=== PATIENT | female | born 1950 | race Caucasian/White ===

== ENCOUNTER 2025-04-08 14:21 | Outpatient (AMB) | payer MEDICARE, SELFPAY ==
--- NOTE | 2025-04-08 14:25 | A.OFFPC_ITS ---
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: No Allergies varenicline [From Chantix] Allergy (Severe, Verified 04/08/25 14:31) mood swings Medication List - Last Reconciled 04/08/25 by Melina Plaza PA-C alendronate 70 mg PO QWEEK aspirin 81 mg PO DAILY atorvastatin 20 mg PO DAILY venlafaxine ER 150 mg PO DAILY Tobacco use date assessed: 04/08/25 Fall risk assessment: No Falls in past year Last assessed Fall Risk: 04/08/25 Dental Screening Dental Screen Date: 04/08/25 Did you have a dental visit in the last 12 months?: Yes Did you have a dental problem in the last 6 months where you did not have access to dental care?: No Was dental information given to patient?: Patient has dentist HPI est care HPI Details Pt is a 74 y/o female who presents today to establish care. She has a hx of anxiety, depression, osteoporosis, renal stones and hld. CV: bp today in the office is 134/76. Her cholesterol is controlled with atorvastatin 20 mg. Pysch: she is on effexor 150 mg and has been on this for many years. States that at different times she has tried to come off of this but has been unsuccessful. Uro: Has followed in the past with Dr. Estrada for kidney stones but has not been seen since 2022. 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 1. Little interest or pleasure in doing things: not at all 2. Feeling down, depressed, or hopeless: not at all 3. Trouble falling or staying asleep, or sleeping too much: not at all 4. Feeling tired or having little energy: not at all 5. Poor appetite or overeating: not at all 6. Feeling bad about yourself - or that you are a failure or have let yourself or your family down: not at all 7. Trouble concentrating on things, such as reading the newspaper or watching television: not at all 8. Moving or speaking so slowly that other people could have noticed. Or the opposite - being so fidgety or restless that you have been moving around a lot more than usual: not at all 9. Thoughts that you would be better off or of hurting yourself in some way: not at all Total score: 0 Depression Screening Interpretation: Negative Depression Screening Done: Yes 42886 - PHQ-9 Billing: Yes Source: Developed by Drs. Armando Mcmahon, Chcia Glover, Jean Paul Ramirez and colleagues, with an educational kavita from [employer]. Thrive Questionnaire Date Thrive assessed: 04/02/25 I am a: Patient What is your living situation today?: I have a steady place to live Within the past 12 months, did the food you bought not last and you didn't have the money to get more?: Never true Within the past 12 months, did you worry whether your food would run out before you got money to buy more?: Never true Do you have trouble paying for medicines?: No Do you have trouble getting transportation to medical appointments?: No Do you have trouble paying your heating and electricity bill?: No Do you have trouble taking care of your child, family member or friend?: No Do you have trouble with day-to-day activities such as bathing, preparing meals, shopping, managing finances, etc.?: No Are you currently unemployed and looking for a job?: No Are you interested in more education?: No Please select the resources that you would like help with: None Currently or been in a relationship where the following occur: No concerns reported THRIVE Score: 0 AUDIT C Alcohol Use Questionnaire (AUDIT-C) 1. How often do you have a drink containing alcohol?: Never 3. How often do you have six or more drinks on one occasion?: Never Total Score: 0 ELBERT-7 AMB Questionnaire ELBERT-7 Feeling nervous, anxious, or on edge: 0 = Not at all Not being able to stop or control worryin = Not at all Worrying too much about different things: 0 = Not at all Trouble relaxin = Not at all Being so restless that it is hard to sit still: 0 = Not at all Becoming easily annoyed or irritable: 0 = Not at all Feeling afraid as if something awful might happen: 0 = Not at all Total ELBERT-7 score (0-4 normal; 5-9 mild; 10-14 moderate; 15-21 severe): 0 Source: Developed by Drs. Armando Mcmahon, Chica Glover, Jean Paul Ramirez and colleagues, with an educational kavita from [employer]. ELBERT-7 Assessment Billing ELBERT-7 Assessment Tool: ELBERT-7 Assessment 52933 Physical exam (Primary Care) Vital Signs: Last Vital Signs Pulse 75 04/08/25 14:30 Resp 14 04/08/25 14:30 BP 134/76 04/08/25 14:30 Pulse Ox 95 04/08/25 14:30 Oxygen Delivery Method Room Air 04/08/25 14:30 BMI result Body Mass Index 19.9 Tobacco/Smoking Status: Tobacco use Status Tobacco use date assessed 04/08/25 04/08/25 14:27 Patient Tobacco Use Status Former Tobacco user (01/201804/08/25 15:14 ) e-Cigarette/Vaping Use Never Used 04/08/25 15:14 PHQ-9: PHQ-9 Score PHQ-9: Total score 0 04/08/25 15:15 Depression Screening Interpretation: Negative Thrive Assessment: Date of Thrive Assessment Date Thrive assessed 04/02/25 04/08/25 14:27 Currently or been in a relationship where the following occur: No concerns reported Const Orientation/consciousness: patient oriented x3 HENMT Ears: hearing grossly normal bilaterally Neck Thyroid: Thyroid normal Lymphatic: lymphadenopathy (cervical lymphadenopathy) Resp Auscultation: clear to auscultation bilaterally Cardio Rate: regular rate Rhythm: regular rhythm Heart sounds: S1 normal heart sound present and S2 normal heart sound present GI Inspection: Yes normal to inspection Palpation (GI): Soft to palpation and Other GI palpation findings present (nontender, no cva tenderness) Auscultation: normoactive bowel sounds Rectal Exam - Female: deferred Skin General skin exam: no rashes or lesions noted Neuro General: patient oriented x3, gait normal and no focal motor deficits Coding Level of Care Code New Pt Level 4 (14386) Complex EM visit Add On G2211 Diagnoses Hx of renal calculi Z87.442 Microscopic hematuria R31.29 HLD (hyperlipidemia) E78.5 Osteoporosis M81.0 Cervical lymphadenopathy R59.0 Anxiety and depression F41.9; F32.A Additional Codes PHQ-9 - 87181 - PHQ-9 Billing: Yes ([id number]) ELBERT-7 Assessment Billing - ELBERT-7 Assessment Tool: ELBERT-7 Assessment [id number] ([id number]) Assessment & Plan Assessment & Plan (1) Hx of renal calculi: Code(s): Z87.442 - Personal history of urinary calculi Category: Medical Plan: u/s and urine ordered today (2) Microscopic hematuria: Code(s): R31.29 - Other microscopic hematuria Category: Medical Plan: as above (3) HLD (hyperlipidemia): Code(s): E78.5 - Hyperlipidemia, unspecified Category: Medical Plan: Labs ordered today. Refilled atorvastatin (4) Osteoporosis: Code(s): M81.0 - Age-related osteoporosis without current pathological fracture Category: Medical Plan: Currently well-controlled on Fosamax. Due for bone density next year. (5) Cervical lymphadenopathy: Code(s): R59.0 - Localized enlarged lymph nodes Category: Medical Plan: Noted on exam today. States that dentist also noticed this. Neck ultrasound and labs ordered. We will follow up pending test results. (6) Anxiety and depression: Code(s): F41.9 - Anxiety disorder, unspecified; F32.A - Depression, unspecified Category: Medical Plan: refilled effexor Plan Referral to GI for colonoscopy screening Referral to derm for routine screening Orders: Orders Comprehensive [place]. Panel Fast 04/08/25 E78.5 - Hyperlipidemia, unspecified, M81.0 - Age-related osteoporosis without current pathological fracture, R31.29 - Other microscopic hematuria, Z87.442 - Personal history of urinary calculi Vitamin B12 and Folate 04/08/25 E78.5 - Hyperlipidemia, unspecified, M81.0 - Age-related osteoporosis without current pathological fracture, R31.29 - Other microscopic hematuria, Z87.442 - Personal history of urinary calculi Magnesium 04/08/25 E78.5 - Hyperlipidemia, unspecified, M81.0 - Age-related os teoporosis without current pathological fracture, R31.29 - Other microscopic hematuria, Z87.442 - Personal history of urinary calculi TSH reflex Free T4 04/08/25 E78. - Hyperlipidemia, unspecified, M81.0 - Age- related osteoporosis without current pathological fracture, R31.29 - Other microscopic hematuria, Z87.442 - Personal history of urinary calculi Vitamin D 25-OH Total 04/08/25 E78.5 - Hyperlipidemia, unspecified, M81.0 - Age-related osteoporosis without current pathological fracture, R31.29 - Other microscopic hematuria, Z87.442 - Personal history of urinary calculi Calcium, 24 Hr Ur 04/08/25 M81.0 - Age-related osteoporosis without current pathological fracture, R31.29 - Other microscopic hematuria, Z87.442 - Personal history of urinary calculi US renal BI 04/08/25 M81.0 - Age-related osteoporosis without current pathological fracture, R31.29 - Other microscopic hematuria, Z87.442 - Personal history of urinary calculi Complete Blood Count Auto Diff 04/08/25 E78.5 - Hyperlipidemia, unspecified, M81.0 - Age-related osteoporosis without current pathological fracture, R31.29 - Other microscopic hematuria, Z87.442 - Personal history of urinary calculi Lipid Panel 04/08/25 E78.5 - Hyperlipidemia, unspecified, M81.0 - Age-related osteoporosis without current pathological fracture, R31.29 - Other microscopic hematuria, Z87.442 - Personal history of urinary calculi UA CC w/rflx Micro + Cult 04/08/25 E78.5 - Hyperlipidemia, unspecified, M81.0 - Age-related osteoporosis without current pathological fracture, R31.29 - Other microscopic hematuria, Z13.220 - Encounter for screening for lipoid disorders, Z87.442 - Personal history of urinary calculi US soft tiss head and/or neck 04/08/25 R59.0 - Localized enlarged lymph nodes Referrals Gastroenterology Referral Z12.11 - Encounter for screening for malignant neoplasm of colon Dermatology Referral Z12.83 - Encounter for screening for malignant neoplasm of skin Medications: New alendronate 70 mg PO QWEEK 13 tabs 3RF 90 days atorvastatin 20 mg PO DAILY 90 tabs 3RF venlafaxine ER 150 mg PO DAILY 90 caps 3RF
[2025-04-08 14:30] VITALS: BP 134/76; PULSE 75; RESP 14; O2SAT 95; BMI 19.9
--- OUTSIDE RECORDS SUMMARY | 2025-04-08 14:41 | XMS_ITS | Continuity of Care Document ---
Author Organization 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 Name Role Phone Hesham Tavares Unavailable Unavailable [...] Procedures Procedure Date Ketorolac tromethamine inj 15mg Oct--2 023 Therapeutic Prophylactic/Dx Injection Amanda bq/Im Methylprednisolone injection Upto 125mg Therapeutic Prophylactic/Dx Injection Amanda bq/Im [facility] Advance Directives Directive Yes / No Effective Date File Name No Information Encounters Encounter Description Practice Location Reason(s) For Visit Diagnoses Date Provider Office/outpatien t visit,[facility], [address], [place], [id number], [place] tel:[phone] [facility] IC YV Rt arm pain, shoulder pain (chief complaint) Right arm painBody mass index (BMI) 19.9 or less, adult Juan Pablo Dahl. [address] [place] [address], [id number], [place]. tel:[phone] Family History Family Member Type Diagnosis Age At Onset No Information Payers Payer name Insurance type Covered libertarian ID Authorthonick roquereagan(s) Medicare [employer] [id number] [facility] PPO [id number] Social History Type Description Quantity Date Captured [...] Mental Status Date Cognitive Assessment Orientation - [place] to time, place, person, situation.
--- OUTSIDE RECORDS SUMMARY | 2025-04-08 14:41 | XMS_ITS | Clinical Summary ---
Author Organization [facility] [address] [place] [address] [place] [phone] Phone Care Team Providers Care Track Equipment Operator Name Role Phone Unavailable Primary Care Provider Unavailabl e Allergies No known active allergies Medications alendronate (FOSAMAX) 70 mg tablet Take 1 tablet (70 mg total) by mouth every 7 (seven) days. Active atorvastatin (LIPITOR) 20 mg tablet Take 1 tablet (20 mg total) by mouth 1 (one) time each day. Active calcium carbonate-pranay calciferol 500 mg-10 mcg (400 unit) per tablet Take 2 tablets by mouth. 01/03/2013 Active hydrOXYzine HCL (ATARAX) 25 mg tablet Take 1 tablet (25 mg total) by mouth. 09/18/2024 Active loperamide (IMODIUM) 2 mg capsule Take 1 capsule (2 mg total) by mouth. 06/27/2023 Active venlafaxine XR (EFFEXOR-XR) 150 mg 24 hr capsule Take 1 capsule (150 mg total) by mouth 1 (one) time each day. 03/18/2024 Active aspirin 81 mg capsule 1 CAPSULE DAILY 09/16/2007 Active s-adenosylmethi onine 400 mg tablet,delayed release (DR/EC) Take by mouth daily. Active Active Problems Problem Noted Date Diagnosed Date Mixed hyperlipidemia 02/07/2023 SOB (shortness of breath) on exertion 08/04/2022 Overview (10/20/2024): Last Assessment & Plan: The symptom is mild and could be just age-related. She doing fairly well with stress test and the functional capacity is probably higher than her peers. Does not suggest ischemia.. Probably partially related to smoking history. I will arrange echocardiogram to assess cardiac function, and structures. Her lipid level was a borderline elevated. Will suggest to repeat another lipid profile. If LDL is further elevated, she may benefit from statin therapy. Fracture of 5th metatarsal 10/20/2015 Dysthymia 04/01/2015 Tobacco dependence 04/01/2015 Alcohol dependence in remission ([facility] V24, [facility] V28) 01/11/2012 Overview (10/20/2024): Sober 17 yrs Migraine headache 02/25/2011 Raynaud disease 02/25/2011 Vasospastic angina ([facility] V24) 02/03/2009 Overview (10/20/2024): Normal cath with judy. Troponin and then inc. ST changes after cath- see transfer records, also with Raynauds and migraines Osteoporosis 09/16/2007 Overview (10/20/2024): LT. FOOT FX, h/o elbow fx and rib Encounters Date Type Department Care Team Description 02/05/2025 1:47 PM EDT - 02/05/2025 11:59 PM EDT Hospital Encounter Radiology Department - [address] [phone] Encounter for screening mammogram for breast cancer Discharge Disposition: Home or Self Care from Last 3 Months Immunizations Name Administration Dates Next Due Influenza Quadravalent, 0.5m l (Fluzone High-dose) 65yo and older 07/02/2023,08/08/2022,07/28/2021 Influenza Quadravalent, MDCK , 0.5ml, preservative free (Flucelvax) 6mo and older 11/27/2018 Influenza trivalent, 0.5mL ( Fluad) 65yo and older 07/22/2019 Influenza trivalent, 0.5mL ( Fluzone High-dose) 65yo and older 07/31/2024,08/19/2021 Pneumococcal conjugate 20 va lent (Prevnar 20, PCV 20) 2mo and older 07/14/2024 Pneumococcal polysaccharide 23 valent (Pneumovax 23) 2yo and older 01/08/2019 RSV, bivalent, protein subun it RSVpreF, 0.5mL, Preservative Free (Arexvy) 60yo and older 07/09/2023 Tdap Tetanus diptheria acell ular pertussis (Boostrix; Adacel) 7yo and older 06/06/2023,10/09/2013 Zoster Live 12/30/2013 Zoster recombinant (Shingrix ) 19yo and older 09/12/2022,01/06/2020 Surgical History Surgery Date Site/Laterality Comments COLONOSCOPY 01/09/2008 PROCEDURE: HISTORICAL COLONOSCOPY; COMMENT: negative; repeat in 10 years COLONOSCOPY 10/01/2018 PROCEDURE: HISTORICAL COLONOSCOPY; COMMENT: Minimal diverticulosis in the sigmoid colon; otherwise negative average risk screening examination. Medical History Medical History Date Comments Osteoporosis 09/16/2007 DX:Osteoporosis; COMMENT: taking actonel Depression 09/16/2007 DX:Depression; C OMMENT: SEES Special screening for malign ant neoplasms, colon 01/09/2008 DX:Special screening for mal ignant neoplasms, colon; COMMENT: Negative colonoscopy 01/09/2008, no colon cancer screening needed for 10 years. Historical Medical DX DX:Alcohol abuse, in remission; COMMENT: sober since 1999. Vasospastic angina (CMS/HCC V24) 02/03/2009 DX:Vasospastic angina (HCC); COMMENT: Normal cath with judy. Troponin and then inc. ST changes after cath- see transfer records, also with Raynauds and migraines Smoker 02/03/2009 DX:Smoker; COMME NT: 1- 11/2 pack per week Pure hypercholesterolemia 02/03/2009 DX:Pur e hypercholesterolemia Irritable bowel syndrome DX:Irri table bowel syndrome Diarrhea DX:Diarrhea Anxiety state DX:Anxiety state Family History Medical History Relation Name Comments No Known Problems Daughter Hypertension Father Arthritis Mother RA Hypertension Mother Thyroid disease Mother Asthma Sister 1 No Known Problems Sister 2 No Known Problems Son Breast cancer Neg Hx Relation Name Status Comments Daughter Alive Father Maternal Grandfather Maternal Grandmother Mother Paternal Grandfather Paternal Grandmother Sister 1 Alive Sister 2 Alive Son Alive Social History Tobacco Use Types Packs/Day Years Used Date Smoking Tobacco: Former Cigarettes 0.3 17.3 1 12/22/1999 - 02/01/2018 Smokeless Tobacco: Never Tobacco Cessation:Counseling Given: Not Answered Alcohol Use Standard Drinks/Week Comments Not Currently 0 (1 standard drink = 0.6 oz pur e alcohol) Comments No Sex and Gender Information Value Date Recorded Sex Assigned at Not on file Legal Sex Female 2:21 PM EST Gender Identity Not on file Sexual Orientation Not on file Obstetrics History Para Term AB IAB SAB Ectopic Multiple Livin g Live Births 2 2 2 2 Date Outcome GA Total Labor Labor/2nd/3rd Weight Sex Type Anes PTL Yoli A1 A5 Name Clin Term Term Last Filed Vital Signs Vital Sign Reading Time Taken Comments Blood Pressure 122/60 12/19/2024 12:54 PM EST Pulse 72 12/19/2024 12:54 PM EST Temperature 36.7 ??C (98.1 ??F) 12/19/2024 12:[address] Respiratory Rate - - Oxygen Saturation - - Inhaled Oxygen Concentration - - Weight 53.1 kg (117 lb) 12/19/2024 12:54 PM EST Height 165.1 cm (5' 5 ) 12/19/2024 12:54 PM EST Body Mass Index 19.47 12/19/2024 12:54 PM EST Plan of Treatment Health Maintenance Due Date Last Done Comments Hepatitis A Vaccines (1 of 2 - Risk 2-dose series) 1971 Falls Risk Assessment 10/28/2022 Social Influencers of Health Screening 10/28/2022 COVID-19 Vaccine (9 - Moderna risk season) 2025 07/25/2024, 09/17/2023, 03/15/2023, Additional history exists Depression Screening 05/20/2025 05/20/2024 Medicare Annual Wellness Visit 05/20/2025 05/20/2024 Osteoporosis Screening (Bone Density Screening) 12/03/2025 12/03/2023, 09/21/2021 Breast Cancer Screening 02/05/2027 02/06/20, 09/29/2024, 03/26/2024, Additional history exists Colorectal Cancer Screening: Colonoscopy 10/01/2028 10/01/2018 Cholesterol Screening (Lipid Panel) 05/16/2029 05/16/2024, 05/16/2024 DTaP,Tdap,and Td Vaccines (3 - Td or Tdap) 06/06/2033 06/06/2023, 10/09/2013 Hepatitis C Screening Completed 10/09/2013 Zoster Vaccines Completed 09/12/2022, 12/20, 12/30/2013 RSV Immunization Adult Patients Completed 07/09/2023 Pneumococcal Vaccine: 50+ Years Completed 07/14/2024, 01/08/2019, 12/20/2017 Influenza Vaccine Completed 07/31/2024, , 08/08/2022, Additional history exists HIB Vaccines Aged Out No longer eligi ble based on patient's age to complete this topic HPV Vaccines Aged Out No longer eligi ble based on patient's age to complete this topic Hepatitis B Vaccines Aged Out No long er eligible based on patient's age to complete this topic IPV Vaccines Aged Out No longer eligi ble based on patient's age to complete this topic MMR Vaccines Aged Out No longer eligi ble based on patient's age to complete this topic Meningococcal ACWY Vaccine Aged Out N o longer eligible based on patient's age to complete this topic Meningococcal B Vaccine Aged Out No l onger eligible based on patient's age to complete this topic RSV Immunization Patients Under 20 months Aged Out No longer eligible based on patient's age to complete this topic Varicella Vaccines Aged Out No longer eligible based on patient's age to complete this topic Procedures Procedure Name Priority Date/Time Associated Diagnosis Comments MG MAMMO DIGITAL SCREENING W AMAURY BILAT Routine 02/05/2025 1:53 PM EDT Encounter for screening mammogram for breast cancer DEPRESSION SCREENING Routine 05/20/2024 LIPID PANEL Routine 05/16/2024 DXA BONE DENSITY STUDY 1+ SITS AXIAL SKEL Routine 12/03/2023 1:07 PM EST Encounter for screening for osteoporosis COLONOSCOPY Routine 10/01/2018 HEPATITIS C SCREENING Routine 10/09/2013 from Last 3 Months or Most Recently Relevant to Health Maintenance Results * MG Mammo Digital Screening w Amaury bilat (02/05/2025 1:53 PM EDT) Anatomical Region Laterality Modality Breast Bilateral Mammography 02/06/2025 9:11 AM EDT Impressions 02/06/2025 9:13 AM EDT No mammographic evidence for malignancy. BI-RADS CATEGORY: 1 - NEGATIVE RECOMMENDATION: Screening bilateral mammogram is recommended in 1 year. Mammo Location: [facility], [address] [place] [address], [id number], . -------- FINAL REPORT -------- Dictated By: Opal Cox Dictated Date: 02/06/2025 09:11 ET Assigned Physician: Opal Cox Reviewed and Electronically Signed By: Opal Cox Signed Date: 02/06/2025 09:13 ET Workstation ID: [id number] Transcribed By: Self Edit Transcribed Date: 02/06/2025 09:11 ET Narrative 02/06/2025 9:13 AM EDT Bilateral screening mammogram. CLINICAL: 74 years old, Female, routine annual exam. COMPARISON: Prior studies, latest from 09/29/2024. ?? TECHNIQUE: Bilateral MLO and CC views were obtained digitally with 2 DC views and 3-D mammogram (digital breast tomosynthesis). Computer-aided detection was utilized in evaluation of this exam (CAD). FINDINGS: There is no evidence of suspicious mass or architectural distortion. ??No worrisome calcifications are evident. ??There has been no significant change from prior exam(s). ?? BREAST DENSITY: B - There are scattered areas of fibroglandular density. Procedure Note Opal Cox MD - 02/06/2025 Bilateral screening mammogram. CLINICAL: 74 years old, Female, routine annual exam. COMPARISON: Prior studies, latest from 09/29/2024. TECHNIQUE: Bilateral MLO and CC views were obtained digitally with 2 DCviews and 3-D mammogram (digital breast tomosynthesis). Computer-aideddetection was utilized in evaluation of this exam (CAD). FINDINGS: There is no evidence of suspicious mass or architectural distortion. Noworrisome calcifications are evident. There has been no significantchange from prior exam(s). BREAST DENSITY: B - There are scattered areas of fibroglandular density. IMPRESSION: No mammographic evidence for malignancy. BI-RADS CATEGORY: 1 - NEGATIVE RECOMMENDATION: Screening bilateral mammogram is recommended in 1 year. Mammo Location: [facility], [address] [place] [address], [address], . -------- FINAL REPORT -------- Dictated By: Opal Cox Dictated Date: 02/06/2025 09:11 ET Assigned Physician: Opal Cox Reviewed and Electronically Signed By: Opal Cox Signed Date: 02/06/2025 09:13 ET Workstation ID: [id number] Transcribed By: Self Edit Transcribed Date: 02/06/2025 09:11 ET Caridad Coates MD IMG BI PROCEDURES Final Result * Depression Screening (05/20/2024) Pathologist [facility] Depression Screening Abstracted Historical Provider HEALTH MAINTENANCE Final Result * Lipid panel (05/16/2024) LDL/HDL Ratio 2 0 - 4 Triglycerides 40 0 - 150 mg/dL Cholesterol 181 0 - 200 mg/dL HDL 106 >=40 mg/dL LDL Cholesterol 67 0 - 100 mg/dL Blood Venous blood specimen / Unknown Historical Provider LAB BLOOD ORDERABLES Laura l Result * DXA BONE DENSITY STUDY 1+ SITS AXIAL SKEL (12/03/2023 1:07 PM EST) Anatomical Region Laterality Modality Bone Densitometr y 06/14/2023 4:56 PM EDT Narrative 12/03/2023 2:48 PM EST BONE DENSITY ? Lumbar Spine T-score is -1.9 ?? (SD relative to 20-29 y/o adult) Z-score is +0.2 ??(SD relative to age matched peers) This is consistent with osteopenia by criteria defined by the WHO. Left Hip T-score is -2.4 Z-score is -0.5 This is consistent with osteopenia by criteria defined by the WHO. Comparison exam(s): no statistically significant change in the bone density of the hip and lumbar spine when compared to most recent bone density examination ?? Confidence level is +/-95%. Impression: Based on the World Health Organization criteria, Yvonne Joyner should be classified as having osteopenia. The [facility] of Internal Medicine recommends using National Osteoporosis Foundation (NOF) guidelines in treatment decisions related to osteoporosis. NOF guidelines suggest considering treatment for postmenopausal women and men aged 50 or older presenting with the following: History of hip or vertebral fracture. T-score less than or equal to -2.5 (DXA) at the femoral neck, total hip, or spine, after appropriate evaluation to exclude secondary causes. Low bone mass (T-score between -1.0 and -2.5 at the femoral neck or spine) AND a 10-year probability of a hip fracture greater than or equal to 3% OR a 10-year probability of a major osteoporosis-related fracture greater than or equal to 20% based on the [place]-adapted WHO algorithm Please note that all treatment decisions require clinical judgment and consideration of individual patient factors, including patient preferences, co-morbidities, previous drug use, risk factors not captured in the FRAX model (e.g., frailty, falls, vitamin D deficiency, increased bone turnover, interval significant decline in bone density) and possible under- or over-estimation of fracture risk by FRAX. Procedure Note Opal Cox MD - 07/07/2024 BONE DENSITY Lumbar Spine T-score is -1.9 (SD relative to 20-29 y/o adult) Z-score is +0.2 (SD relative to age matched peers) This is consistent with osteopenia by criteria defined by the WHO. Left Hip T-score is -2.4 Z-score is -0.5 This is consistent with osteopenia by criteria defined by the WHO. Comparison exam(s): no statistically significant change in the bonedensity of the hip and lumbar spine when compared to most recent bonedensity examination Confidence level is +/-95%. Impression: Based on the World Health Organization criteria, Yvonne Joyner should beclassified as having osteopenia. The [facility] of Internal Medicine recommendsusing National Osteoporosis Foundation (NOF) guidelines in treatmentdecisions related to osteoporosis. NOF guidelines suggest consideringtreatment for postmenopausal women and men aged 50 or older presentingwith the following: History of hip or vertebral fracture. T-score less than or equal to -2.5 (DXA) at the femoral neck, total hip,or spine, after appropriate evaluation to exclude secondary causes. Low bone mass (T-score between -1.0 and -2.5 at the femoral neck or spine)AND a 10-year probability of a hip fracture greater than or equal to 3% ORa 10-year probability of a major osteoporosis-related fracture greaterthan or equal to 20% based on the [place]-adapted WHO algorithm Please note that all treatment decisions require clinical judgment andconsideration of individual patient factors, including patientpreferences, co-morbidities, previous drug use, risk factors not capturedin the FRAX model (e.g., frailty, falls, vitamin D deficiency, increasedbone turnover, interval significant decline in bone density) and possibleunder- or over-estimation of fracture risk by FRAX. Valery James DO IMG DXA PROCEDURES Final Result * Colonoscopy (10/01/2018) [facility] Colonoscopy No Interpretation , Abstracted Anatomical Region Laterality Modality Other Historical Provider HEALTH MAINTENANCE Final Result * Hepatitis C Screening (10/09/2013) [facility] Hepatitis C Screening Abstracted Historical Provider HEALTH MAINTENANCE Final Result from Last 3 Months or Most Recently Relevant to Health [place] [phone] [facility] Member Subscriber Plan / Payer [facility] Name:Ar Yvonne Jakub Relation to Subscriber:Self Name:Yvonne Joyner Payer ID:[id number] Type:Not on file Address: [address] [place] [address]
== END 2025-04-08 15:31 | disposition home or self-care (01) ==
LOC: HO.HMCFM 14:22
PROVIDERS: PCP Physician Assistant; Visit Provider Physician Assistant
DX: Z87.442 Personal history of urinary calculi (principal); R31.29 Other microscopic hematuria; E78.5 Hyperlipidemia, unspecified; M81.0 Age-related osteoporosis without current pathological fracture; R59.0 Localized enlarged lymph nodes; F41.9 Anxiety disorder, unspecified; F32.A Depression, unspecified

== ENCOUNTER → 2025-04-08 14:21 | Outpatient (BNVA) | payer MEDICARE, SELFPAY | PROVIDERS: PCP Physician Assistant; Visit Provider Physician Assistant | DX: R31.29 Other microscopic hematuria (principal); E78.5 Hyperlipidemia, unspecified; M81.0 Age-related osteoporosis without current pathological fracture; R59.0 Localized enlarged lymph nodes; F41.9 Anxiety disorder, unspecified; F32.A Depression, unspecified; Z87.442 Personal history of urinary calculi | CPT/HCPCS: 96127; 99202 ==

== ENCOUNTER 2025-04-15 09:14 | Outpatient (REF) | payer MEDICARE, SELFPAY ==
--- OUTSIDE RECORDS SUMMARY | 2025-04-15 09:51 | XMS_ITS | Clinical Summary ---
Author Organization [facility] [address] [place] [address] [place] [phone] Phone Care Team Providers Care Lotteries Agent Name Role Phone Unavailable Primary Care Provider [...] Tobacco dependence 04/01/2015 Alcohol dependence in remission ([facility] V24, [facility] V28) 01/11/2012 Overview (10/20/2024): Sober 17 yrs Migraine headache 02/25/2011 Raynaud disease 02/25/2011 Vasospastic angina ([facility] V24) 02/03/2009 Overview (10/20/2024): Normal cath with judy. Troponin and then inc. ST changes after cath- see transfer records, also with Raynauds and migraines Osteoporosis 09/16/2007 Overview (10/20/2024): LT. FOOT FX, h/o elbow fx and rib Encounters Date Type Department Care Team Description 02/05/2025 1:47 PM EDT - 02/05/2025 11:59 PM EDT Hospital Encounter Radiology Department - [address] [address] Encounter for screening mammogram for breast cancer [...] is recommended in 1 year. Mammo Location: [facility], [address] [place] [address], [address], . -------- FINAL REPORT -------- Dictated By: Opal Cox Dictated Date: 02/06/2025 09:11 ET Assigned Physician: Opal Cox Reviewed and Electronically Signed By: Opal Cox Signed Date: 02/06/2025 09:13 ET Workstation ID: [id number] Transcribed By: Self Edit Transcribed Date: 02/06/2025 [...] is recommended in 1 year. Mammo Location: [facility], [address] [place] [address], [address], . -------- FINAL REPORT -------- Dictated By: Opal Cox Dictated Date: 02/06/2025 09:11 ET Assigned Physician: Opal Cox Reviewed and Electronically Signed By: Opal Cox Signed Date: 02/06/2025 09:13 ET Workstation ID: [id number] Transcribed By: Self Edit Transcribed Date: 02/06/2025 09:11 ET Caridad Coates MD IMG BI PROCEDURES Final Result * Depression Screening (05/20/2024) Pathologist [facility] Depression Screening Abstracted Historical Provider HEALTH MAINTENANCE [...] should be classified as having osteopenia. The [facility] of [facility] Medicine recommends using National [...] Joyner should beclassified as having osteopenia. The [facility] Department of Internal Medicine recommendsusing National Osteoporosis [...] DXA PROCEDURES Final Result * Colonoscopy (10/01/2018) [facility] Colonoscopy No Interpretation , Abstracted Anatomical Region Laterality Modality Other Historical Provider HEALTH MAINTENANCE Final Result * Hepatitis C Screening (10/09/2013) [facility] Hepatitis C Screening Abstracted Historical Provider HEALTH MAINTENANCE Final Result from Last 3 Months or Most Recently Relevant to [place] [phone] MEDICARE [facility]
[2025-04-15 11:18] LABS: Appearance Urine Hazy; Color Urine Yellow; Glucose Urine UA Negative (Negative); Leukocyte Esterase Urine Negative (Negative); Nitrite Urine Negative (Negative); PH 8.5 (5.0-9.0); UMIC TRIGGER UACC YES; Urine Blood Trace (Negative); Urine Ketones Negative (Negative); Urine Protein Negative (Neg-Trace)
[2025-04-15 11:20] LABS: Bacteria Urine None Seen (None Seen); Hyaline Casts Urine 0-2 /LPF (0-2); Squamous Epithelial Cell Urine 0-2 /HPF (0-2); WBC Urine 0-5 /HPF (0-5)
[2025-04-15 11:24] LABS: MANUAL DIFF FLAG NO
[2025-04-15 11:28] LABS: Basophils Percent Auto 1.1 % (0-2); Eosinophils Absolute Auto 0.2 X10*3/uL (0.0-0.4); Eosinophils Percent Auto 5.4 % (0-4); Hematocrit 38.9 % (37.0-47.0); Hemoglobin 12.5 g/dl (12.0-16.0); Imm Gran Abs Auto 0.01 X10*3/uL (0.00-0.03); Imm Gran Pct Auto 0.3 % (0.0-0.4); Lymphocytes Absolute Auto 1.4 X10*3/uL (1.2-4.9); Lymphocytes Percent Auto 40.6 % (20-40); Mean Corpuscular HGB Conc 32.1 g/dl (31.0-35.0); Mean Corpuscular Hemoglobin 28.4 pg (27.0-33.0); Mean Corpuscular Volume 88.4 fL (80.0-98.0); Mean Platelet Volume 9.8 fL (9.4-12.3); Monocytes Absolute Auto 0.2 X10*3/uL (0.1-1.2); Monocytes Percent Auto 6.3 % (2-11); Neutrophils Absolute Auto 1.6 x10*3/uL (2.0-8.3); Neutrophils Percent Auto 46.3 % (45-73); Platelet Count 287 X10*3/uL (160-400); Red Cell Distribution Width 13.2 % (11.0-16.0); White Blood Count 3.5 X10*3/uL (4.8-10.8)
[2025-04-15 12:14] LABS: Alanine Aminotransferase 22 U/L (0-31); Albumin Level 4.6 g/dL (3.5-5.0); Alkaline Phosphatase 44 U/L (39-117); Anion Gap 10 (12-20); Aspartate Amino Transferase 23 U/L (5-31); Bilirubin Total 0.3 mg/dL (0.0-1.0); Blood Urea Nitrogen 13 mg/dL (9-16); Calcium 8.9 mg/dL (8.4-10.2); Carbon Dioxide 30 mmol/L (22-29); Chloride 104 mmol/L (96-108); Cholesterol 196 mg/dL (<200); Estimated Glomerular Filt Rate > 60; Glucose Fasting 91 mg/dL (60-99); HDL Cholesterol 96 mg/dL (>40); LDL Cholesterol Calculated 93 mg/dL (<100); Magnesium 2.1 mg/dL (1.6-2.6); Potassium 3.8 mmol/L (3.3-5.1); Sodium 140 mmol/L (135-145); TSH reflex Free T4 2.19 uIU/mL (0.32-4.0); Total Protein 7.2 g/dL (6.5-8.0); Triglycerides 39 mg/dL (<150); Vitamin D 25-OH Total 74.7 ng/mL (>30)
[2025-04-15 12:33] LABS: Folate 5.9 ng/mL (> or = 4.0); Vitamin B12 436 pg/mL (200-900)
== END 2025-04-15 09:15 | disposition home or self-care (01) ==
LOC: HO.WFDLDS 09:14
PROVIDERS: Visit Provider Physician Assistant
DX: M81.0 Age-related osteoporosis without current pathological fracture (principal); E78.5 Hyperlipidemia, unspecified; R31.29 Other microscopic hematuria; Z87.442 Personal history of urinary calculi
CPT/HCPCS: 36415; 80053; 80061; 81001; 82306; 82607; 82746; 83735; 84443; 85025

== ENCOUNTER 2025-04-20 12:04 | Outpatient (REF) | payer MEDICARE, SELFPAY ==
--- OUTSIDE RECORDS SUMMARY | 2025-04-20 13:12 | XMS_ITS | Continuity of Care Document ---
Author Organization [facility] are Address [address] [place] [address] Phone Care Team Providers Care Machine Staker Name Role Phone Hesham Tavares Unavailable Unavailable [...] 125mg Therapeutic Prophylactic/Dx Injection Amanda bq/Im Office/outpatient visit,[facility] 2022 Advance Directives Directive Yes / No Effective Date File Name No Information Encounters Encounter Description Practice Location Reason(s) For Visit Diagnoses Date Provider Office/outpatien t visit,[facility], [address], [place], [id number], [place] tel:[phone] [facility] IC YV Rt arm pain, shoulder pain (chief complaint) Right arm painBody mass index (BMI) 19.9 or less, adult [place] Dahl. [address] [place] [address], [id number], [place]. tel:[phone] Family History Family Member Type Diagnosis Age At Onset No Information Payers Payer name Insurance type Covered republican ID Authorthonick roquereagan(s) Medicare [employer] [id number] [facility] PPO [id number] Social History Type Description Quantity Date Captured [...] Mental Status Date Cognitive Assessment Orientation - Hammon ed to time, place, person, situation.
[2025-04-26 20:09] LABS: Calcium, 24 Hr Urine 168 mg/24 h; Calcium/Creatinine Ratio 227 mg/g creat (30-275); Creatinine 24Hr Urine 0.74 g/24 h (0.50-2.15)
== END 2025-04-20 12:05 | disposition home or self-care (01) ==
LOC: HO.LNP 12:04
PROVIDERS: Visit Provider Physician Assistant
DX: M81.0 Age-related osteoporosis without current pathological fracture (principal); R31.29 Other microscopic hematuria; Z87.442 Personal history of urinary calculi
CPT/HCPCS: 82340

== ENCOUNTER 2025-05-15 14:31 | Outpatient (REF) | payer MEDICARE, SELFPAY ==
--- NOTE | ~2025-05-15 | US_ITS ---
EXAMINATION: US KIDNEY BILATERAL HISTORY: R31.29 - Other microscopic hematuria TECHNIQUE: Real-time grayscale ultrasound imaging of the kidneys was performed and images were reviewed. COMPARISON: There are no prior studies available for comparison. FINDINGS: Right kidney: The right kidney measures 9.4 x 4.2 x 4.0 cm. Renal parenchymal echotexture and thickness are normal. There is a 5 x 6 x 6 mm cyst in the interpolar region. There are scattered tiny nonobstructing calculi noted measuring up to 2 mm in size. There is no hydronephrosis. Left Kidney: The left kidney measures 8.9 x 4.9 x 3.6 cm. Renal parenchymal echotexture and thickness are normal. There are no masses. Multiple nonobstructing calculi are noted measuring up to 4 mm in size. There is no hydronephrosis. US/US renal BI IMPRESSION: Bilateral nephrolithiasis as described. There is no hydronephrosis. Electronically signed by: Armando Aguilar MD 05/18/2025 07:19 AM EDT
--- NOTE | ~2025-05-15 | US_ITS ---
EXAMINATION: US HEAD NECK SOFT TISSUE HISTORY: R59.0 - Localized enlarged lymph nodes COMPARISON: There are no prior studies available for comparison. FINDINGS: Sonographic examination of the neck was performed. There is a 1.4 x 0.4 x 0.9 cm ovoid hypoechoic structure in the right neck which likely represents a lymph node. On the left, there is a 1.6 x 1.4 x 1.3 cm cystic structure containing internal debris at level IA, of uncertain etiology. US/US soft tiss head and/or neck IMPRESSION: 1. Probable 1.4 x 0.4 x 0.9 cm right neck lymph node. 2. 1.6 x 1.4 x 1.3 cm cystic structure in the left neck containing internal debris, of unknown etiology. CT or MRI of the neck is suggested for further evaluation. Electronically signed by: Armando Aguilar MD 05/18/2025 07:24 AM EDT
--- OUTSIDE RECORDS SUMMARY | 2025-05-15 14:53 | XMS_ITS | Clinical Summary ---
Author Organization [facility] [address] [place] [address] [place] [phone] Phone Care Team Providers Care Transport Nurse Name Role Phone Unavailable Primary Care Provider [...] Tobacco dependence 04/01/2015 Alcohol dependence in remission ([facility] V24, [facility] V28) 01/11/2012 Overview (10/20/2024): Sober 17 yrs Migraine headache 02/25/2011 Raynaud disease 02/25/2011 Vasospastic angina ([facility] V24) 02/03/2009 Overview (10/20/2024): Normal cath with judy. Troponin and then inc. ST changes after cath- see transfer records, also with Raynauds and migraines Osteoporosis 09/16/2007 Overview (10/20/2024): LT. FOOT FX, h/o elbow fx and rib Immunizations Name Administration Dates Next Due Influenza [...] actonel Depression 09/16/2007 DX:Depression; C OMMENT: SEES MH Special screening for malign ant neoplasms, colon 01/09/2008 DX:Special screening for mal ignant neoplasms, colon; COMMENT: Negative colonoscopy 01/09/2008, no colon cancer screening needed for 10 years. Historical Medical DX DX:Alcohol abuse, in remission; COMMENT: sober since 1999. Vasospastic angina (CMS/HCC V24) 02/03/2009 DX:Vasospastic angina ([facility]); COMMENT: Normal cath with judy. Troponin and [...] 72 12/19/2024 12:54 PM EST Temperature 36.7 C (98.1 F) 12/19/2024 12:54 PM EST Respiratory Rate - - Oxygen Saturation - [...] is recommended in 1 year. Mammo Location: [facility], [address] [place] [address], [id number], . -------- FINAL REPORT -------- Dictated By: Opal Cox Dictated Date: 02/06/2025 09:11 ET Assigned Physician: Opal Cox Reviewed and Electronically Signed By: Opal Cox Signed Date: 02/06/2025 09:13 ET Workstation ID: [id number] Transcribed By: Self Edit Transcribed Date: 02/06/2025 [...] evidence of suspicious mass or architectural distortion. No worrisome calcifications are evident. There has been no significant change from prior exam(s). BREAST DENSITY: B - [...] is recommended in 1 year. Mammo Location: [facility], [address] [place] [address], [address], . -------- FINAL REPORT -------- Dictated By: Opal Cox Dictated Date: 02/06/2025 09:11 ET Assigned Physician: Opal Cox Reviewed and Electronically Signed By: Opal Cox Signed Date: 02/06/2025 09:13 ET Workstation ID: [id number] Transcribed By: Self Edit Transcribed Date: 02/06/2025 09:11 ET Caridad Coates MD IMG BI PROCEDURES Final Result * Depression Screening (05/20/2024) Depression Screening Abstracted Historical Provider HEALTH MAINTENANCE [...] Narrative 12/03/2023 2:48 PM EST BONE DENSITY Lumbar Spine T-score is -1.9 [...] compared to most recent bone density examination Confidence level is +/-95%. Impression: Based on the World Health Organization criteria, Yvonne Joyner should be classified as having osteopenia. The [facility] Department of Internal Medicine recommends using National [...] Joyner should beclassified as having osteopenia. The [facility] Department of Internal Medicine recommendsusing National Osteoporosis [...] fracture risk by FRAX. Valery James DO [facility] DXA PROCEDURES Final Result * Colonoscopy (10/01/2018) [facility] Colonoscopy No Interpretation , Abstracted Anatomical Region Laterality Modality Other Historical Provider HEALTH MAINTENANCE Final Result * Hepatitis C Screening (10/09/2013) [facility] Hepatitis C Screening Abstracted [facility] Provider HEALTH MAINTENANCE Final Result from Last 3 Months or Most Recently Relevant to Health Maintenance Insurance [facility]
== END 2025-05-15 14:32 | disposition home or self-care (01) ==
LOC: HO.US 14:31
PROVIDERS: PCP Physician Assistant; Visit Provider Physician Assistant
DX: R31.29 Other microscopic hematuria (principal); R59.0 Localized enlarged lymph nodes; M81.0 Age-related osteoporosis without current pathological fracture; Z87.442 Personal history of urinary calculi
CPT/HCPCS: 76536; 76775

== ENCOUNTER → 2025-05-15 14:36 | Outpatient (BNV) | payer MEDICARE, SELFPAY | PROVIDERS: PCP Physician Assistant; Visit Provider Radiology Diagnostic Radiology | DX: R59.0 Localized enlarged lymph nodes (principal); N20.0 Calculus of kidney | CPT/HCPCS: 76536; 76775 ==

== ENCOUNTER 2025-08-04 10:44 | Outpatient (REF) | payer MEDICARE, SELFPAY | END 2025-08-04 10:45 | disposition home or self-care (01) | LOC: HO.LAB 10:44 | PROVIDERS: PCP Physician Assistant; Visit Provider Nurse Practitioner Family | DX: R31.29 Other microscopic hematuria (principal); N28.1 Cyst of kidney, acquired; Z87.442 Personal history of urinary calculi; Z13.89 Encounter for screening for other disorder | CPT/HCPCS: 51798; 81003; 88112; 99202 ==

== ENCOUNTER 2025-08-04 10:44 | Outpatient (AMB) | payer MEDICARE, SELFPAY ==
--- NOTE | 2025-08-04 10:50 | MHC.OFFVIS ---
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 Plaza was accompanied by her significant other at today's office visit. She has a past medical history of IBS, hyperlipidemia, anxiety, depression, osteoporosis, and nephrolithiasis. She presents to the office today as a new patient for nephrolithiasis and renal cyst. In discussion with the patient today she reports previously following up with a urologist in the past through [facility] for her longstanding history of nephrolithiasis. She reports she was encouraged to drink water daily otherwise no other recommendations were made. She reports having recently established PCP care through [facility] and recommendations were made for urology referral for further assessment evaluation. Recent renal imaging results were reviewed with the patient and her today. Bilateral kidneys with normal parenchymal echotexture and thickness. Right kidney with 5 mm cyst and 2 mm nonobstructing stone. Left kidney with multiple 4 mm nonobstructing calculi. There is no hydronephrosis bilaterally. We did discussed at length potential causes of nephrolithiasis as well as renal cysts. We discussed obtaining Litholink for further assessment evaluation. She currently denies any bothersome urinary issues. She reports she is drinking at least 60 oz of water a day and adds lemon juice to her water daily. She reports knowing when she does not drink enough water as she gets a sensation to her left lower abdomen area. In office urinalysis results reviewed with the patient today. Microscopic hematuria noted. Patient does report a longstanding history of microscopic hematuria. She currently denies any bothersome urinary issues or concerns. All questions were answered. She discusses her upcoming appointment with Gastroenterology for her longstanding history of IBS and recent change in bowel habits. She also discusses her recent travel to [place] to see her son and grandchildren. She otherwise offers no other issues or concerns at this time. PFSH Surgical History (Updated 04/08/25 @ 15:12 by Judy Olivier CMA) H/O colonoscopy Family History (Updated 04/08/25 @ 15:14 by Judy Olivier CMA) Mother HTN (hypertension) Father HTN (hypertension) Thyroid disease Rheumatoid arthritis Sister Asthma Social History (Updated 04/08/25 @ 15:14 by Judy Olivier CMA) Housing: House Alcohol intake: former Comment: 35 years sober Patient Tobacco Use Status: Former Tobacco user Cigarettes Per Day: 5 Years Smoked: 20 e-Cigarette/Vaping Use: Never Used Second Hand Smoke Exposure: No service: No Current occupational status: retired Cognitive needs: No Hearing needs: No Vision needs: No Review of Systems Const All systems reviewed & are unremarkable except as noted in HPI and below Physical Exam Const General: cooperative, healthy appearing, comfortable, no acute distress, well developed, alert and awake Nutritional Appearance: thin Orientation/consciousness: patient oriented x3 Limitations: no limitations HEENT Head: Yes normal to inspection, Yes normocephalic and Yes atraumatic Ears: hearing grossly normal bilaterally Eyes General: appearance normal, both eyes and all related structures Neck Neck: Yes normal visual inspection and Yes trachea midline Chest Chest palpation & inspection: normal inspection of the chest Resp Effort & Inspection: normal respiratory effort and able to speak in complete sentences Cardio Rate: regular rate GI Inspection: Yes normal to inspection General: Yes no CVA tenderness Back/Spine/Pelvis Back: no CVA tenderness Skin General skin exam: no rashes or lesions noted Neuro General: patient oriented x3 Extrem General: Yes normal to inspection Psych Appearance: grossly normal and well kempt Mental Status: mental status grossly normal Speech and movement: Normal speech and movement present and Clear speech present Affect: normal affect Attitude: cooperative Thought process: Normal thought process present Thought content: Normal thought content present Insight: Fair insight present (Psych) Judgement: Fair judgement present (Psych) Office Procedures Post Void Residual Post Residual Void Post Void Residual (PVR): 0 [id number] Void Residual by ultrasound Results AMB Urinalysis, Automated UA Leukoctes 0 Louisa/uL Last Edit by LUIS M Hernandez on 08/04/25 11:06 UA Nitrite Negative Last Edit by LUIS M Hernandez on 08/04/25 11:06 UA Urobilinogen 0.2 mg/dL Last Edit by Rylan Zamora [facility] on 08/04/25 11:06 UA Protein 0 mg/dL Last Edit by Rylan Zamora [facility] on 08/04/25 11:06 UA pH 6.5 Last Edit by Rylan Zamora [facility] on 08/04/25 11:06 UA Blood 25 Kirk/uL Last Edit by Rylan Zamora [facility] on 08/04/25 11:06 UA Specific Paradox 1.010 Last Edit by Rylan Zamora [facility] on 08/04/25 11:06 UA Ketone Negative Last Edit by Rylan Zamora [facility] on 08/04/25 11:06 UA Bilirubin 0 mg/dL Last Edit by Rylan Zamora [facility] on 08/04/25 11:06 UA Glucose 0 mg/dL Last Edit by Rylan Zamora [facility] on 08/04/25 11:06 Results Reviewed Results Reviewed: Laboratory Last Values Urine pH (Auto) 6.5 08/04/25 11:06 Specific Paradox (Auto) 1.010 08/04/25 11:06 Urine Protein (Auto) 0 mg/dL 08/04/25 11:06 Glucose (UA)(Auto) 0 mg/dL 08/04/25 11:06 Urine Ketones (Auto) Negative 08/04/25 11:06 Urine Blood (Auto) 25 Kirk/uL 08/04/25 11:06 Urine Nitrite (Auto) Negative 08/04/25 11:06 Urine Bilirubin (Auto) 0 mg/dL 08/04/25 11:06 Urine Urobilinogen (Auto) 0.2 mg/dL 08/04/25 11:06 Leukocyte Esterase (Auto) 0 Louisa/uL 08/04/25 11:06 Date of Service: 05/15/25 Procedure(s): US renal BI FINDINGS: Right kidney: The right kidney measures 9.4 x 4.2 x 4.0 cm. Renal parenchymal echotexture and thickness are normal. There is a 5 x 6 x 6 mm cyst in the interpolar region. There are scattered tiny nonobstructing calculi noted measuring up to 2 mm in size. There is no hydronephrosis. Left Kidney: The left kidney measures 8.9 x 4.9 x 3.6 cm. Renal parenchymal echotexture and thickness are normal. There are no masses. Multiple nonobstructing calculi are noted measuring up to 4 mm in size. There is no hydronephrosis. IMPRESSION: Bilateral nephrolithiasis as described. There is no hydronephrosis. Assessment & Plan Assessment & Plan (1) Microscopic hematuria: Code(s): R31.29 - Other microscopic hematuria Category: Medical (2) Renal cyst, right: Code(s): N28.1 - Cyst of kidney, acquired Category: Medical (3) Hx of renal calculi: Code(s): Z87.442 - Personal history of urinary calculi Category: Medical Plan In office urinalysis results reviewed with the patient today; as noted above. PVR 0 mL We discussed nephrolithiasis, microscopic hematuria, and renal cysts; we discussed further treatment options and risks and benefits of these treatment options. All questions were answered. Will obtain Litholink for further assessment evaluation. Continue adding lemon juice to water daily. We discussed the importance of adequate hydration relation to nephrolithiasis as well as overall health and well-being. She currently denies any bothersome urinary issues. She reports be happy with current voiding parameters. Follow-up in 3 months with Litholink to be completed prior; or sooner with any issues, concerns, and or questions. Orders: Orders AMB Urinalysis Automated Today Z13.9 - Encounter for screening, unspecified Urine Cytology Today R31.29 - Other microscopic hematuria URORISK Today Z87.442 - Personal history of urinary calculi Patient Instructions: The patient had an opportunity to ask questions regarding the treatment plan. All questions were answered. Physical exam, labs, and imaging were discussed and reviewed in detail. As well as risks, benefits, and discussion of treatment choices. No major barriers to understanding were identified. The patient expressed understanding and agreement with the above treatment plan. The patient was made aware they should contact our office by phone for worsening of their current condition, the appearance of new symptoms, or with any questions or concerns. Compliance is encouraged with any medications and follow up testing that is ordered. It is a privilege to be allowed the opportunity to participate in? your urological care.? Again, if you have any questions or concerns If you have any questions or concerns please do not hesitate to contact me. The office is [phone]. This note is constructed using voice recognition software. While every effort has been made to ensure accuracy vacuum tester cans errors may have been included. Yours sincerely, NELLY Taylor-PHUONG Coding Level of Care Code New Pt Level 3 (91253) Diagnoses Microscopic hematuria R31.29 Renal cyst, right N28.1 Hx of renal calculi Z87.442 CPT Codes Post Residual Void - PVR CPT Code: [id number] Void Residual by ultrasound ([id number])
--- OUTSIDE RECORDS SUMMARY | 2025-08-04 14:19 | XMS_ITS | Clinical Summary ---
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 Phone Unavailable Primary Care Provider [...] Tobacco dependence 04/01/2015 Alcohol dependence in remission ([facility] V24, [facility] V28) 01/11/2012 Overview (10/20/2024): Sober 17 yrs Migraine headache 02/25/2011 Raynaud disease 02/25/2011 Vasospastic angina ([facility] V24) 02/03/2009 Overview (10/20/2024): Normal [...] Vasospastic angina (CMS/HCC V24) 02/03/2009 DX:Vasospastic angina ([facility]); COMMENT: Normal cath with judy. Troponin and [...] 10/28/2022 Social Influencers of Health Screening 10/28/2022 Depression Screening 11/19/2024 05/20/2024 Medicare Annual Wellness Visit 05/20/2025 05/20/2024 COVID-19 Vaccine ( season) 2025 07/25/2024, 09/17/2023, 03/15/2023, Additional history exists Influenza Vaccine (#1) 2025 , 07/02/2023, 08/08/2022, Additional history exists Osteoporosis Screening (Bone Density Screening) 12/03/2025 12/03/2023, [...] Vaccine: 50+ Years Completed 07/14/2024, 01/08/2019, 12/20/2017 HIB Vaccines Aged Out No longer eligi [...] is recommended in 1 year. Mammo Location: [facility], [address] [place] [address], [address], . -------- FINAL REPORT -------- Dictated By: Opal Cox Dictated Date: 02/06/2025 09:11 ET Assigned Physician: Opal Cox Reviewed and Electronically Signed By: Opal Cox Signed Date: 02/06/2025 09:13 ET Workstation ID: [id number] Transcribed By: Self Edit Transcribed Date: 02/06/2025 [...] is recommended in 1 year. Mammo Location: [facility], [address] [place], [place], [address], . -------- FINAL REPORT -------- Dictated By: Opal Cox Dictated Date: 02/06/2025 09:11 ET Assigned Physician: Opal Cox Reviewed and Electronically Signed By: Opal Cox Signed Date: 02/06/2025 09:13 ET Workstation ID: [id number] Transcribed By: Self Edit Transcribed Date: 02/06/2025 [...] should be classified as having osteopenia. The [facility] Department of Internal Medicine recommends using National [...] Joyner should beclassified as having osteopenia. The [facility] Department of Internal Medicine recommendsusing National Osteoporosis [...] fracture risk by FRAX. Valery James DO [facility] DXA PROCEDURES Final Result * Colonoscopy (10/01/2018) [facility] Colonoscopy No Interpretation , Abstracted Anatomical Region Laterality Modality Other Historical Provider HEALTH MAINTENANCE Final Result * Hepatitis C Screening (10/09/2013) [facility] Hepatitis C Screening Abstracted [facility] Provider HEALTH MAINTENANCE Final Result from Last 3 Months or Most Recently Relevant to Health Maintenance Insurance MEDICARE [facility]
--- OUTSIDE RECORDS SUMMARY | 2025-08-04 14:19 | XMS_ITS ---
Author Name [facility] Organization Unknown Care Team Organization Name Specialty Phone Email Start Date End Da [facility] 07/08/2025 [facility] Sharifa Redman Primary Care 04/27/2023 07/07/20 [facility] Juan Miguel Ny Primary Care 09/26/2022 07/07/2024
== END 2025-08-04 11:50 | disposition home or self-care (01) ==
LOC: HO.HUSH 10:44
PROVIDERS: PCP Physician Assistant; Visit Provider Nurse Practitioner Family
DX: R31.29 Other microscopic hematuria (principal); N28.1 Cyst of kidney, acquired; Z87.442 Personal history of urinary calculi; Z13.9 Encounter for screening, unspecified
CPT/HCPCS: 99203

== ENCOUNTER 2025-08-17 09:01 | Outpatient (REF) | payer MEDICARE, SELFPAY ==
--- OUTSIDE RECORDS SUMMARY | 2025-08-17 09:36 | XMS_ITS | Clinical Summary ---
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 Troponin and then inc. ST changes after cath- see transfer records, also with Raynauds and migraines Osteoporosis 09/16/2007 Overview (10/20/2024): LT. FOOT FX, h/o elbow fx and rib Immunizations Immunization Administration Dates Next Due Influenza Quadravalent, 0.5m [...] Vasospastic angina (CMS/HCC V24) 02/03/2009 DX:Vasospastic angina ([facility]); COMMENT: Normal cath with judy. [...] is recommended in 1 year. Mammo Location: [facility], [address] [place] [address], [address], . -------- FINAL REPORT -------- Dictated By: Opal Cox Dictated Date: 02/06/2025 09:11 ET Assigned Physician: Opal Cox Reviewed and Electronically Signed By: Opal Cox Signed Date: 02/06/2025 09:13 ET Workstation ID: [id number] Transcribed By: Self Edit Transcribed Date: 02/06/2025 [...] is recommended in 1 year. Mammo Location: [facility], [address] [place], [place], [address], . -------- FINAL REPORT -------- Dictated By: Opal Cox Dictated Date: 02/06/2025 09:11 ET Assigned Physician: Opal Cox Reviewed and Electronically Signed By: Opal Cox Signed Date: 02/06/2025 09:13 ET Workstation ID: [id number] Transcribed By: Self Edit Transcribed Date: 02/06/2025 [...] should be classified as having osteopenia. The [facility] Department of Internal Medicine recommends using National [...] Joyner should beclassified as having osteopenia. The [facility] Department of Internal Medicine recommendsusing National Osteoporosis [...] DXA PROCEDURES Final Result * Colonoscopy (10/01/2018) [facility] Colonoscopy No Interpretation , Abstracted Anatomical Region Laterality Modality Other Historical Provider HEALTH MAINTENANCE Final Result * Hepatitis C Screening (10/09/2013) [facility] Hepatitis C Screening Abstracted [facility] Provider HEALTH MAINTENANCE Final Result from Last 3 Months or Most Recently Relevant to Health Maintenance Insurance MEDICARE [facility]
[2025-08-17 11:25] LABS: MANUAL DIFF FLAG NO
[2025-08-17 11:26] LABS: Appearance Urine Clear; Glucose Urine UA Negative (Negative); PH 8.0 (5.0-9.0); Specific Gravity - Urine 1.015 (1.005-1.025); UMIC TRIGGER UACC YES
[2025-08-17 11:31] LABS: Hematocrit 37.1 % (37.0-47.0); Hemoglobin 12.4 g/dl (12.0-16.0); Imm Gran Abs Auto 0.01 X10*3/uL (0.00-0.03); Imm Gran Pct Auto 0.2 % (0.0-0.4); Lymphocytes Absolute Auto 1.5 X10*3/uL (1.2-4.9); Mean Corpuscular HGB Conc 33.4 g/dl (31.0-35.0); Mean Corpuscular Hemoglobin 29.4 pg (27.0-33.0); Mean Corpuscular Volume 87.9 fL (80.0-98.0); NRBC Abs Auto 0.000 X10*3/uL (0.0-0.012); NRBC Pct Auto 0.0 /100WBC (0.0-0.2); Platelet Count 262 X10*3/uL (160-400); Red Blood Count 4.22 X10*6/uL (4.20-5.50); White Blood Count 4.2 X10*3/uL (4.8-10.8)
[2025-08-17 12:02] LABS: UACC Culture Trigger YES
[2025-08-17 14:43] LABS: Anion Gap 9 (12-20); Blood Urea Nitrogen 12 mg/dL (9-16); Calcium 9.0 mg/dL (8.4-10.2); Carbon Dioxide 30 mmol/L (22-29); Chloride 106 mmol/L (96-108); Estimated Glomerular Filt Rate > 60; Potassium 4.0 mmol/L (3.3-5.1); Sodium 141 mmol/L (135-145)
== END 2025-08-17 09:02 | disposition home or self-care (01) ==
LOC: HO.WFDLDS 09:01
PROVIDERS: Visit Provider Physician Assistant
DX: D72.819 Decreased white blood cell count, unspecified (principal); F41.9 Anxiety disorder, unspecified; F32.A Depression, unspecified; E78.5 Hyperlipidemia, unspecified; Z87.442 Personal history of urinary calculi
CPT/HCPCS: 36415; 80048; 81001; 85025; 87086

== ENCOUNTER 2025-08-20 08:54 | Outpatient (AMB) | payer MEDICARE, SELFPAY ==
--- OUTSIDE RECORDS SUMMARY | 2023-09-05 05:00 | XMS_ITS | Continuity of Care Document ---
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 Name Role Phone Hesham Tavares Unavailable Unavailable Medications Medication Instructions Dosage Effective Dates (start - stop) Status Comments alendronate 70 mg tablet take 1 tablet by oral route every week in the morning, at least 30 min before first food, beverage, or medication of day 70 MG - Active venlafaxine ER 150 mg tablet,extended release 24 hr take 1 tablet by oral route every day in the morning at the same time each day with food 150 MG - Active loperamide 2 mg capsule take 1 capsule by oral route after 1st loose stool, followed by 1 capsule after each subsequent loose stool not to exceed 16 mg/day 2 MG - Active atorvastatin 20 mg tablet take 1 tablet by oral route every day 20 MG - Active calcium carb-vit D3-minerals 600 mg calcium-400 unit tablet - Active Vazalore 81 mg capsule take 1 capsule by oral route every day 81 MG - Active ibuprofen 200 mg capsule take 2 capsule by oral route every 6 hours as needed 400 MG - Active DAVIDA-e 200 mg tablet - Active Procedures Procedure Date Ketorolac tromethamine inj 15mg - 023 Therapeutic Prophylactic/Dx Injection Amanda bq/Im Methylprednisolone injection Upto 125mg Therapeutic Prophylactic/Dx Injection Amanda bq/Im Office/outpatient visit,[facility] 2022 Advance Directives Directive Yes / No Effective Date File Name No Information Encounters Encounter Description Practice Location Reason(s) For Visit Diagnoses Date Provider Office/outpatien t visit,[facility], [address], [place], [id number], [place] tel:[phone] [facility] IC YV Rt arm pain, shoulder pain (chief complaint) Right arm painBody mass index (BMI) 19.9 or less, adult Juan Pablo Dahl. [address] [place] [address], [id number], [place]. tel:[phone] Family History Family Member Type Diagnosis Age At Onset No Information Payers Payer name Insurance type Covered alliance party ID Authorthonick roquereagan(s) Medicare [employer] [id number] [facility] PPO [id number] Social History Type Description Quantity Date Captured Comments Alcohol Use Details Unknown Caffeine Use Details Unknown Tobacco Use Status No Information Smoking Status No Information Sex Female Vital Signs Date / Time: Height Weight BMI Pulse Rate Blood Pressure Temperature Respiratory Rate Body Surface Area Head Circumference Head Circ. Percentile Wt./Valentin. Percentile BMI percentile Pulse Ox Inhaled Ox 9:25 AM 65.00 in 54.431 kg (120.00 lbs) 19.9 7 kg/m eter (2) 82 /min 175/88 mm[Hg] 98.00 F 16 /min 99 % Chief Complaint And Reason For Visit From encounter dated '09/05/2023 09:00'. Rt arm pain, shoulder pain (chief complaint). Description: The symptoms are reported as being . Thesymptoms occur . The patient states the symptoms are acute. Patient is [place] here from [place] of [place] to help with her grandchildren's care. Patient denies any injury. Patient states she hasbeen lifting her 2-year-old grandson child a lot. Patient does have a chronic shoulder pain. However this time it is quite bad and radiating to her right arm. She is returning to her home in 2 days. History Of Present Illness Encounter Date Complaint History Of Prese nt Illness Rt arm pain, shoulder pain The s ymptoms are reported as being . The symptoms occur . The patient states the symptoms are acute. Patient is visiting here from out of state to help with her grandchildren's care. Patient denies any injury. Patient states she has been lifting her 2-year-old grandson child a lot. Patient does have a chronic shoulder pain. However this time it is quite bad and radiating to her right arm. She is returning to her home in 2 days. Instructions Date Instruction Additional Infor mation Please take medicati ons as prescribed. Heat, massage and gentle stretching mild help ease the pain as well. Be sure to seen you PCP in 1 week for further evaluation. Related to Right arm pain Assessments Type Assessment Date assessment Right arm pain assessment Body mass index (BMI) 19.9 or le ss, adult Mental Status Date Cognitive Assessment Orientation - [place] ed to time, place, person, situation.
--- NOTE | 2025-08-20 08:57 | MHC.OFFVIS ---
Vital Signs 08/20/25 09:04 Height 5 ft 3 in Weight 112 lb BMI 19.8 BP 134/78 Blood Pressure Location Lt brachial Position Sitting Pulse 76 Pulse Oximetry (%) 96 Oxygen Delivery Method Room Air Intake Visit Reasons: Colonoscopy Screening Intake Note: Patient new consult for 3rd pre Colonoscopy screening, 1st two was at [facility] dx with diverticulosis. Patient cc: not urge to do BM/constipation, she was dx with IBS, couples of months she was with bloody stool, denies any other GI issues. 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 Referred by PCP for pre colonoscopy screening Patient is accompanied by spouse. Patient presents reporting approximately 4 months of intermittent blood noted in stools, described as a small, maroon quantity, often with associated mucus but without accompanying pain. Has a longstanding history of constipation alternating with diarrhea over the past 1?2 years, previously diagnosed as IBS by GI specialist( [facility]), with prior predominant diarrhea. More recently, has experienced constipation with bowel movements every 3?4 days, character described as small, hard, malt ball appearing. Denies any urge to defecate between movements, bloating, acid indigestion, abdominal pain, or discomfort. Appetite remains robust and energy level described as optimal. No recent medication changes. Reports good fluid intake (~60?65 oz water/day), high fiber and vegetable intake, and regular exercise. Notable past colonoscopy in 2018 with minimal diverticulosis in the sigmoid; otherwise negative. No prior polyps. No family history of GI malignancy. Recent labs reportedly unremarkable, including no anemia Of note, comorbid diabetes and osteoporosis. History of kidney stones and thyroid/parathyroid cyst. Patient denies: fever/chills, n/v, appetite changes, pyrosis, regurgitation,dysphasia, unintentional wt loss, ab pain. Social hx: -denies ETOH use -denies recreational drug use -former smoker, cessation 2017 - family hx as below -denies personal hx of CA -denies significant cardiopulmonary history -tolerated anesthesia in the past without difficulty [facility] Medical History (Updated 08/21/25 @ 17:09 by Ana Maria Rai CNP) Constipation Colon cancer screening Rectal bleeding Surgical History H/O colonoscopy Family History Mother HTN (hypertension) Father HTN (hypertension) Thyroid disease Rheumatoid arthritis Sister Asthma Social History Housing: House Alcohol intake: former Comment: 35 years sober Patient Tobacco Use Status: Former Tobacco user Cigarettes Per Day: 5 Years Smoked: 20 e-Cigarette/Vaping Use: Never Used Second Hand Smoke Exposure: No service: No Current occupational status: retired Cognitive needs: No Hearing needs: No Vision needs: No Review of Systems Const Reports as per HPI ENT Reports as per HPI Card Reports as per HPI Resp Reports as per HPI GI Reports as per HPI Reports as per HPI Physical Exam Vital Signs: Last Vital Signs Pulse 76 08/20/25 09:04 BP 134/78 08/20/25 09:04 Pulse Ox 96 08/20/25 09:04 Oxygen Delivery Method Room Air 08/20/25 09:04 BMI result Body Mass Index 19.8 Const General: healthy appearing, no acute distress and well developed Nutritional Appearance: average body habitus Orientation/consciousness: patient oriented x3 HEENT Head: Yes normal to inspection, Yes normocephalic and Yes atraumatic Face and sinus: Yes normal facial exam Eyes General: appearance normal, both eyes and all related structures Neck Neck: Yes normal visual inspection Resp Effort & Inspection: normal respiratory effort, able to speak in complete sentences, no tracheal deviation and symmetric chest movement Cardio Jugular venous distension: no JVD GI Inspection: Yes normal to inspection and No distended Palpation (GI): Soft to palpation, not firm, nontender and No hepatosplenomegaly present Auscultation: normal bowel sounds Rectal Exam - Female: visual inspection normal, normal sphincter tone, No External hemorrhoid(s) present, No Internal hemorrhoid(s) present, No Rectal prolapse, No fecal impaction, No Lesions present (GI), No Anal fissure(s) present, hemorrhoids (tags only), No Fistula present (GI), No Laceration(s) present (GI), No Excoriation present (GI), No mass and No tenderness Neuro General: patient oriented x3 Gait exam (Neuro): Normal gait present Psych Appearance: grossly normal Mental Status: mental status grossly normal Speech and movement: Normal speech and movement present Affect: normal affect Attitude: cooperative Thought process: Normal thought process present Thought content: Normal thought content present Insight: Good insight present (Psych) Judgement: Good judgement present (Psych) Assessment & Plan Assessment & Plan (1) Colon cancer screening: Code(s): Z12.11 - Encounter for screening for malignant neoplasm of colon Category: Medical Plan: Due for surveillance. Intermittent rectal bleeding. Medications: -prescriptions for laxative tablets and PEG sent to pharmacy; instructions on clear liquid diet given. - understands to hold aspirin 7 days prior to procedure. Patient educated on scheduling process, procedure preparation, including avoiding certain foods and ensuring clear liquid intake Advised on necessity for ride post-procedure due to sedation. (2) Rectal bleeding: Code(s): K62.5 - Hemorrhage of anus and rectum Category: Medical Plan: Intermittent, minor, maroon rectal bleeding, episodic, without anemia on labs; history of diverticulosis; no overt hemorrhoids or fissures on exam. Additional Testing: Colonoscopy ordered to evaluate for mucosal source (polyps, neoplasia, persistent diverticular disease, etc.). Medication Management: Continue current regimen; hold aspirin 7 days pre-procedure per protocol. Lifestyle Recommendations: Continue high fiber/fluid intake. Monitor for red flag symptoms: persistent bleeding, increased frequency/volume, weight loss, new pain, fevers. Follow-Up: Colonoscopy and post-procedure follow-up. Sooner assessment if new concerning symptoms develop. (3) Constipation: Code(s): K59.00 - Constipation, unspecified Category: Medical Qualifiers: Constipation type: unspecified constipation type Qualified Code(s): K59.00 - Constipation, unspecified Plan: Alternating constipation and diarrhea; chronicity; prior GI diagnosis; absence of alarm features. C/W IBS mix Additional Testing: None at present beyond planned colonoscopy. Medication Management: Patient prefers to avoid pharmacologic agents; continue current self-care (diet/hydration, probiotic, routine exercise). Lifestyle Recommendations: Optimize dietary fiber/soluble-insoluble mix, further titrate hydration if constipation persists. Review bowel regimen if symptoms worsen. Follow-Up: Per GI as above; sooner if symptomatic changes or patient preference. Plan Follow-up after endoscopy or sooner as needed Time: I spent a total of 45 minutes on the date of encounter which includes: Preparing to see the patient (reviewed previous documentation, test results and medical history) Performing a medically appropriate exam and/or evaluation Ordering medications, tests, and procedures Documenting clinical information in the health record Orders: Referrals GI Procedure Notification K62.5 - Hemorrhage of anus and rectum, Z12.11 - Encounter for screening for malignant neoplasm of colon Medications: New bisacodyl Take per colonoscopy instructions 5 mg PO ONCE 4 tabs 0RF simethicone (Gas Relief (simethicone)) per colonoscopy prep instructions 125 mg PO ONCE 4 caps 0RF abdominal distention peg 3350-electrolytes 236-22.74-6.74 -5.86 gram until fecal effluent is clear 240 mL PO Q10M 4,000 mL 0RF Coding Level of Care Code New Pt New Pt Level 4 (98622) Patient Type New Diagnoses Colon cancer screening Z12.11 Rectal bleeding K62.5 Constipation, unspecified constipation type K59.00 Constipation type: unspecified constipation type
[2025-08-20 09:04] VITALS: BP 134/78; PULSE 76; O2SAT 96; BMI 19.8
--- OUTSIDE RECORDS SUMMARY | 2025-08-20 09:28 | XMS_ITS | Clinical Summary ---
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 Role Phone Unavailable Primary Care [...] Tobacco dependence 04/01/2015 Alcohol dependence in remission ([facility] V24, [facility] V28) 01/11/2012 Overview (10/20/2024): Sober 17 yrs Migraine headache 02/25/2011 Raynaud disease 02/25/2011 Vasospastic angina ([facility] V24) 02/03/2009 Overview (10/20/2024): Normal [...] subun it RSVpreF, 0.5mL, Preservative Free (Arexvy) 50yo and older 07/09/2023 Tdap Tetanus diptheria acell [...] Vasospastic angina (CMS/HCC V24) 02/03/2009 DX:Vasospastic angina ([facility]); COMMENT: Normal cath with judy. [...] is recommended in 1 year. Mammo Location: [facility], [address] [place] [address], [id number], . -------- FINAL REPORT -------- Dictated By: Opal Cox Dictated Date: 02/06/2025 09:11 ET Assigned Physician: Opal Cox Reviewed and Electronically Signed By: Opal Cox Signed Date: 02/06/2025 09:13 ET Workstation ID: [id number] Transcribed By: Self Edit Transcribed Date: 02/06/2025 [...] is recommended in 1 year. Mammo Location: [facility], [address] [place], [place], [address], . -------- FINAL REPORT -------- Dictated By: Opal Cox Dictated Date: 02/06/2025 09:11 ET Assigned Physician: Opal Cox Reviewed and Electronically Signed By: Opal Cox Signed Date: 02/06/2025 09:13 ET Workstation ID: [id number] Transcribed By: Self Edit Transcribed Date: 02/06/2025 [...] classified as having osteopenia. The [facility] Department of Internal Medicine recommends using National [...] beclassified as having osteopenia. The [facility] Department of Internal Medicine recommendsusing National Osteoporosis [...] fracture risk by FRAX. Valery James DO [facility] DXA PROCEDURES Final Result * Colonoscopy (10/01/2018) [facility] Colonoscopy No Interpretation , Abstracted Anatomical Region Laterality Modality Other Historical Provider HEALTH MAINTENANCE Final Result * Hepatitis C Screening (10/09/2013) [facility] Hepatitis C Screening Abstracted [facility] Provider HEALTH MAINTENANCE Final Result from Last 3 Months or Most Recently Relevant to Health Maintenance Insurance MEDICARE [facility]
== END 2025-08-20 09:50 | disposition home or self-care (01) ==
LOC: HO.HGI 08:54
PROVIDERS: PCP Physician Assistant; Visit Provider Nurse Practitioner Family
DX: K62.5 Hemorrhage of anus and rectum (principal); K59.00 Constipation, unspecified; Z12.11 Encounter for screening for malignant neoplasm of colon
CPT/HCPCS: 99204

== ENCOUNTER → 2025-08-20 08:54 | Outpatient (BNVA) | payer MEDICARE, SELFPAY | PROVIDERS: PCP Physician Assistant; Visit Provider Nurse Practitioner Family | DX: Z12.11 Encounter for screening for malignant neoplasm of colon (principal); K62.5 Hemorrhage of anus and rectum; K59.00 Constipation, unspecified | CPT/HCPCS: 99202 ==

== ENCOUNTER 2025-08-24 13:03 | Outpatient (REF) | payer MEDICARE, SELFPAY ==
--- NOTE | ~2025-08-24 | CT_ITS ---
CLINICAL HISTORY: R59.0 - Localized enlarged lymph nodes --- Additional Notes or Special Instructions: ORDER WAS PLACED INCORRECTLY. CHANGED TO CORRECT PROTOCOL. CT soft tissue neck with contrast Comparison: None provided Findings: The visualized intracranial contents are unremarkable. Pharyngeal mucosal space, parapharyngeal fat, prevertebral tissues, and epiglottis are within normal limits. Prominent left submandibular gland. The right submandibular gland is not identified. Hypoplastic parotid glands. The thyroid is within normal limits. Visualized lung apices are clear. No acute fractures. Partial obscuration of the mandibular structures secondary to metallic artifact from cavity filling material. IMPRESSION: 1. Prominent left submandibular gland. 2. Absent right submandibular gland. Clinical correlation suggested. 3. No acute findings in the soft tissues of the neck. This document has been electronically signed by: Sharath Chicas MD on 08/25/2025 22:24:07
--- OUTSIDE RECORDS SUMMARY | 2025-08-24 15:22 | XMS_ITS | Clinical Summary ---
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 Name Role Phone Unavailable Primary Care Provider [...] Alcohol dependence in remission ([facility] V24, [facility] V28) 01/11/2012 Overview (10/20/2024): Sober 17 yrs Migraine headache 02/25/2011 Raynaud disease 02/25/2011 Vasospastic angina ([facility] V24) 02/03/2009 Overview (10/20/2024): Normal [...] Vasospastic angina (CMS/HCC V24) 02/03/2009 DX:Vasospastic angina ([facility]); COMMENT: Normal cath with judy. [...] is recommended in 1 year. Mammo Location: [facility], [address] [place] [address], [id number], . -------- FINAL REPORT -------- Dictated By: Opal Cox Dictated Date: 02/06/2025 09:11 ET Assigned Physician: Opal Cox Reviewed and Electronically Signed By: Opal Cox Signed Date: 02/06/2025 09:13 ET Workstation ID: [id number] Transcribed By: Self Edit Transcribed Date: 02/06/2025 [...] is recommended in 1 year. Mammo Location: [facility], [address] [place], [place], [address], . -------- FINAL REPORT -------- Dictated By: Opal Cox Dictated Date: 02/06/2025 09:11 ET Assigned Physician: Opal Cox Reviewed and Electronically Signed By: Opal Cox Signed Date: 02/06/2025 09:13 ET Workstation ID: [id number] Transcribed By: Self Edit Transcribed Date: 02/06/2025 [...] should be classified as having osteopenia. The [facility] Department of Internal Medicine recommends using National [...] Joyner should beclassified as having osteopenia. The [facility] Department of Internal Medicine recommendsusing National Osteoporosis [...] fracture risk by FRAX. Valery James DO [facility] DXA PROCEDURES Final Result * Colonoscopy (10/01/2018) [facility] Colonoscopy No Interpretation , Abstracted Anatomical Region Laterality Modality Other Historical Provider HEALTH MAINTENANCE Final Result * Hepatitis C Screening (10/09/2013) [facility] Hepatitis C Screening Abstracted [facility] Provider HEALTH MAINTENANCE Final Result from Last 3 Months or Most Recently Relevant to Health Maintenance Insurance MEDICARE [facility]
[2025-08-24] MEDS: iohexoL 350 MG/ML 100 ML INFUS..BTL 60 ML IV (15:37)
== END 2025-08-24 13:04 | disposition home or self-care (01) ==
LOC: HO.CT 13:03
PROVIDERS: PCP Physician Assistant; Visit Provider Physician Assistant
DX: R59.0 Localized enlarged lymph nodes (principal); R93.89 Abnormal findings on diagnostic imaging of other specified body structures
CPT/HCPCS: 70491; Q9967

== ENCOUNTER → 2025-08-24 13:04 | Outpatient (BNV) | payer MEDICARE, SELFPAY | PROVIDERS: PCP Physician Assistant; Visit Provider Radiology Diagnostic Radiology | DX: R59.0 Localized enlarged lymph nodes (principal) | CPT/HCPCS: 70491 ==

== ENCOUNTER 2025-10-14 10:53 | Outpatient (AMB) | payer MEDICARE, SELFPAY ==
[2025-10-14 11:01] VITALS: BP 124/74; PULSE 70; TEMP 36.7; O2SAT 98
--- NOTE | 2025-10-14 11:02 | AM.OFFVISMDC ---
Intake Vital Signs 10/14/25 11:01 Height 5 ft 3 in Weight 113 lb BMI 20.0 BP 124/74 Blood Pressure Location Lt brachial Position Sitting Pulse 70 Pulse Source Pulse Oximeter Temp 98.1 F Temp Source Oral Pulse Oximetry (%) 98 Oxygen Delivery Method Room Air Intake Visit Reasons: pe/mwv Allergies varenicline (From Chantix) Allergy (Severe, Verified 08/20/25 08:56) mood swings HPI pe/mwv HPI Details Pt is a 74 y/o female who presents today for a mwv. She is relatively new here. She has a hx of anxiety, depression, osteoporosis, renal stones and hld. HEENT: Following with General surgery on 11/26 for the persistent enlarged submandibular lymph node. It feels unchanged. CV: bp today in the office is 134/76. Her cholesterol is controlled with atorvastatin 20 mg. Pysch: she is on effexor 150 mg and has been on this for many years. States that at different times she has tried to come off of this but has been unsuccessful. She is following online with a therapist. Her son and 2 grandchildren live on the [facility] and this is a struggle for her. She has a trip planned to see them next year. They are planning on flying out here in the spring. She has worsened depression symptoms in the winter months. She knows how to cope with this and has a good support system. She is accompanied today by her . They have been for 54 years. Uro: She is follwing with [facility] for hx of stones and hematuria. GI: has been getting some constipation and diarrhea and getting colonoscopy 10/20/25. Mammo: UTD, completes these at [place] [employer]: has stopped 5 years ago- she wants a routine exam Bone density: 11/2023- osteopenia- improved from 2 years prior, has been on fosamax x 4 years. Colonoscopy: Overdue- has seen gi for consult [facility] Medical History (Updated 08/21/25 @ 17:09 by Ana Maria Rai CNP) Constipation Colon cancer screening Rectal bleeding Surgical History H/O colonoscopy Family History Mother HTN (hypertension) Father HTN (hypertension) Thyroid disease Rheumatoid arthritis Sister Asthma Social History Housing: House Alcohol intake: former Comment: 35 years sober Patient Tobacco Use Status: Former Tobacco user Cigarettes Per Day: 5 Years Smoked: 20 e-Cigarette/Vaping Use: Never Used Second Hand Smoke Exposure: No service: No Current occupational status: retired Cognitive needs: No Hearing needs: No Vision needs: No Questionnaire Medicare Wellness Checkup What [age] 65-71 What gender do you identify with?: female During the past 4 weeks, how much have you been bothered by emotional problems such as feeling anxious, depressed, irritable, sad or downhearted, and blue?: extremely During the past 4 weeks, has your physical & emotional health limited your social activities with family, friends, neighbors, or groups?: not at all During the past 4 weeks, how much bodily pain have you generally had?: no pain During the past 4 weeks, was someone available to help you if you needed & wanted help?: yes, as much as I wanted During the past 4 weeks, what was the hardest physical activity you could do for at least 2 minutes?: very heavy Can you get to places out of walking distance without help? (For eg., can you travel alone on buses, taxis or drive your car?): No Can you go shopping for groceries or clothes without someone's help?: No Can you prepare your own meals?: No Can you do your housework without help?: No Because of any health problems, do you need the help of another person with your personal care needs such as eating, bathing, dressing or getting around the house?: No Can you handle your own money without help?: No During the past 4 weeks, how would you rate your health in general?: excellent During the past 4 weeks how have things been going for you?: good & bad parts about equal Are you having difficulties driving your car?: no Do you always fasten your seat belt when you are in a car?: yes, usually During past 4 weeks, have you been bothered by the following: never: Falling or dizzy when standing up, Sexual problems?, Trouble eating well?, Problems using the telephone? and Tiredness or fatigue? and seldom: Teeth or denture problems? Have you fallen 2 or more times in the past year?: No Are you afraid of falling?: No Are you a smoker?: no During the past 4 weeks, how many drinks of wine, beer, or other alcoholic beverages did you have?: no alcohol at all Do you exercise for about 20 minutes 3 or more times a week?: yes, all the time Have you been given information to help with the following?: yes: Hazards in your house that might hurt you? and yes: Keeping track of your medications? How often do you have trouble taking medicines the way you have been told to take them?: sometimes I take medicine as prescribed How confident are you that you can control & manage most of your health problems?: very confident What is your race?: White Mini Mental State Exam (MMSE) Orientation What is the (year) (season) (date) (day) (month)?: year, season, date, day and month Where are we (state) (county) (town or city) (hospital) (floor)?: state, county, town or city, hospital/clinic and floor Registration Name of 3 unrelated objects clearly and slowly, then ask patient to repeat all 3 of them. (1st repeat determines score. Make sure they can repeat all three): object 1, object 2 and object 3 Attention & Calculation (CHOOSE ONE) Spell WORLD backwards (DLROW): 5 letters Recall Ask patient to repeat the 3 items from question #3.: object 1, object 2 and object 3 Language Show patient a wristwatch & ask what it is. Repeat for pencil.: pencil Ask the patient to repeat the phrase 'No ifs, ands, or buts' after you.: correct Give patient a blank piece of paper & ask to write a sentence. Score if it contains a noun & verb.: sentence contains subject and verb Score Score: 24 Activity of Daily Living Bathing - sponge bath, tub bath or shower: receives no assistance (gets in/out by self, if usual bathing means Dressing - getting clothes from closets & drawers, including inner/outer garments & fasteners.: gets clothes & gets completely dressed without help Toileting - going to the 'toilet room' for urine/bowel elimination & cleaning self/arranging clothes: goes to toilet room, cleans self, arranges clothes without help Transfer: moves in & out of bed and chair without help (may use support object) Continence: controls urination/bowel movements completely by self Feeding: feeds self without help Total Score: 0 Information obtained from: patient Using telephone: independent Traveling: independent Shopping: independent Preparing meals: independent Housework: independent Taking medicine: independent Managing money: independent PHQ-9 Over the last 2 weeks, how often have you been bothered by any of the following problems? 1. Little interest or pleasure in doing things: not at all 2. Feeling down, depressed, or hopeless: several days 3. Trouble falling or staying asleep, or sleeping too much: more than half the days 4. Feeling tired or having little energy: several days 5. Poor appetite or overeating: not at all 6. Feeling bad about yourself - or that you are a failure or have let yourself or your family down: several days 7. Trouble concentrating on things, such as reading the newspaper or watching television: several days 8. Moving or speaking so slowly that other people could have noticed. Or the opposite - being so fidgety or restless that you have been moving around a lot more than usual: several days 9. Thoughts that you would be better off or of hurting yourself in some way: not at all Total score: 7 Depression Screening Interpretation: Positive Depression Screening Done: Yes 69392 - PHQ-9 Billing: Yes Source: Developed by Drs. Armando Mcmahon, Chica Glover, Jean Paul Ramirez and colleagues, with an educational kavita from [employer]. Physical Exam Vital Signs: Last Vital Signs Temp 98.1 F 10/14/25 11:01 Pulse 70 10/14/25 11:01 BP 124/74 10/14/25 11:01 Pulse Ox 98 10/14/25 11:01 Oxygen Delivery Method Room Air 10/14/25 11:01 BMI result Body Mass Index 20.0 Const Orientation/consciousness: patient oriented x3 HEENT Ears: hearing grossly normal bilaterally Neck Thyroid: Thyroid normal Lymphatic: no lymphadenopathy noted Resp Auscultation: clear to auscultation bilaterally Cardio Rate: regular rate Rhythm: regular rhythm Heart sounds: S1 normal heart sound present and S2 normal heart sound present GI Inspection: Yes normal to inspection Palpation (GI): Soft to palpation and Other GI palpation findings present (nontender, no cva tenderness) Auscultation: normoactive bowel sounds Rectal Exam - Female: deferred Skin General skin exam: no rashes or lesions noted Neuro General: patient oriented x3, gait normal and no focal motor deficits Office Procedures EKG Details: EKG today in the office is normal sinus rhythm at a rate of 66 beats per minute with nonspecific STT wave abnormalities. No prior study to compare. EKG interpreted myself and Dr. Kinsey. [id number], Complete Results Reviewed Results Reviewed: Laboratory Tests 04/15/25 04/20/25 08/17/25 09:18 Unknown 09:07 WBC 4.2 L RBC 4.22 Hgb 12.4 Hct 37.1 Plt Count 262 Sodium 141 Potassium 4.0 Chloride 106 Carbon Dioxide 30 H Anion Gap 9 L BUN 12 Creatinine 0.65 Estimated GFR > 60 Random Glucose 87 Calcium 9.0 Triglycerides 39 Cholesterol 196 LDL Cholesterol, Calc 93 HDL Cholesterol 96 TSH 2.19 Ur Leukocyte Esterase Urine RBC Urine WBC Ur Squamous Epith Cells Urine Bacteria Hyaline Casts Ur Creatinine 24 Hour 0.74 Ur Calcium 24 Hr 168 Calcium/Creat 24 Hr 227 08/17/25 09:13 WBC RBC Hgb Hct Plt Count Sodium Potassium Chloride Carbon Dioxide Anion Gap BUN Creatinine Estimated GFR Random Glucose Calcium Triglycerides Cholesterol LDL Cholesterol, Calc HDL Cholesterol TSH Ur Leukocyte Esterase Small (1+) H Urine RBC 6-10 H Urine WBC 0-5 Ur Squamous Epith Cells 0-2 Urine Bacteria None Seen Hyaline Casts 3-5 Ur Creatinine 24 Hour Ur Calcium 24 Hr Calcium/Creat 24 Hr Assessment & Plan Assessment & Plan (1) Medicare annual wellness visit, initial: Code(s): Z00.00 - Encounter for general adult medical examination without abnormal findings Plan: Health maintenance reviewed Labs reviewed No concerns at home or with ADLs or falling Patient will bring in healthcare proxy forms (2) Hx of renal calculi: Code(s): Z87.442 - Personal history of urinary calculi Plan: seeing urology (3) Microscopic hematuria: Code(s): R31.29 - Other microscopic hematuria Plan: as above (4) HLD (hyperlipidemia): Code(s): E78.5 - Hyperlipidemia, unspecified Plan: labs were wnl. Refilled atorvastatin (5) Osteoporosis: Code(s): M81.0 - Age-related osteoporosis without current pathological fracture Plan: Currently well-controlled on Fosamax. Due for bone density next year. (6) Cervical lymphadenopathy: Code(s): R59.0 - Localized enlarged lymph nodes Plan: following with gen surgery, had neck ct (7) Anxiety and depression: Code(s): F41.9 - Anxiety disorder, unspecified; F32.A - Depression, unspecified Plan: refilled effexor Orders: Orders Complete Blood Count Auto Diff Today E78.5 - Hyperlipidemia, unspecified, F32.A - Depression, unspecified, F41.9 - Anxiety disorder, unspecified, R59.0 - Localized enlarged lymph nodes Lipid Panel Today E78.5 - Hyperlipidemia, unspecified, F32.A - Depression, unspecified, F41.9 - Anxiety disorder, unspecified, R59.0 - Localized enlarged lymph nodes Comprehensive [place]. Panel Fast Today E78.5 - Hyperlipidemia, unspecified, F32.A - Depression, unspecified, F41.9 - Anxiety disorder, unspecified, R59.0 - Localized enlarged lymph nodes TSH reflex Free T4 Today E78.5 - Hyperlipidemia, unspecified, F32.A - Depression, unspecified, F41.9 - Anxiety disorder, unspecified, R59.0 - Localized enlarged lymph nodes Referrals [facility] Referral Z01.419 - Encounter for gynecological examination (general) (routine) without abnormal findings Quality Reporting (2019) Depression/Bipolar (159/160/161/177) PHQ-9: Total score: 7 Coding Level of Care Code Medicare First (G0438) Est Pt Level 4 (12770) Diagnoses Medicare annual wellness visit, initial Z00.00 Hx of renal calculi Z87.442 Microscopic hematuria R31.29 HLD (hyperlipidemia) E78.5 Osteoporosis M81.0 Cervical lymphadenopathy R59.0 Anxiety and depression F41.9; F32.A CPT Codes Advance Care Planning - Time spent: 1-15 minutes, on File ([id number]) EKG - CPT: 23791-[id number], Complete ([id number]) Additional Codes PHQ-9 - 98823 - PHQ-9 Billing: Yes ([id number]) Advance Care Planning Advance Care Planning discussion: Exists, not on file Who was present: Forms completed: Health Care Proxy and Living will Time spent: 1-15 minutes, on File
--- OUTSIDE RECORDS SUMMARY | 2025-10-14 13:22 | XMS_ITS | Clinical Summary ---
Author Organization [facility] [address] [place] [address] [place] [phone] Phone Care Team Providers Care Carry Out Clerk Name Role Phone Unavailable Primary Care Provider [...] Tobacco dependence 04/01/2015 Alcohol dependence in remission ([facility] V24, [facility] V28) 01/11/2012 Overview (10/20/2024): Sober 17 yrs Migraine headache 02/25/2011 Raynaud disease 02/25/2011 Vasospastic angina ([facility] V24) 02/03/2009 Overview (10/20/2024): Normal cath [...] Vasospastic angina (CMS/HCC V24) 02/03/2009 DX:Vasospastic angina ([facility]); COMMENT: Normal cath with judy. Troponin and [...] is recommended in 1 year. Mammo Location: [facility], [address] [place] [address], [id number], . -------- FINAL REPORT -------- Dictated By: Opal Cox Dictated Date: 02/06/2025 09:11 ET Assigned Physician: Opal Cox Reviewed and Electronically Signed By: Opal Cox Signed Date: 02/06/2025 09:13 ET Workstation ID: [id number] Transcribed By: Self Edit Transcribed Date: 02/06/2025 [...] is recommended in 1 year. Mammo Location: [facility], [address] [place] [address], [id number], . -------- FINAL REPORT -------- Dictated By: Opal Cox Dictated Date: 02/06/2025 09:11 ET Assigned Physician: Opal Cox Reviewed and Electronically Signed By: Opal Cox Signed Date: 02/06/2025 09:13 ET Workstation ID: [id number] Transcribed By: Self Edit Transcribed Date: 02/06/2025 [...] should be classified as having osteopenia. The [facility] Department of Internal Medicine recommends [...] Joyner should beclassified as having osteopenia. The [facility] Department of Internal Medicine recommendsusing [...] fracture risk by FRAX. Valery James DO [facility] DXA PROCEDURES Final Result * Colonoscopy (10/01/2018) [facility] Colonoscopy No Interpretation , Abstracted Anatomical Region Laterality Modality Other Historical Provider HEALTH MAINTENANCE Final Result * Hepatitis C Screening (10/09/2013) [facility] Hepatitis C Screening Abstracted [facility] Provider HEALTH MAINTENANCE Final Result from Last 3 Months or Most Recently Relevant to Health Maintenance Insurance MEDICARE [facility]
== END 2025-10-14 11:43 | disposition home or self-care (01) ==
LOC: HO.HMCFM 10:54
PROVIDERS: PCP Physician Assistant; Visit Provider Physician Assistant
DX: Z00.00 Encounter for general adult medical examination without abnormal findings (principal); R31.29 Other microscopic hematuria; E78.5 Hyperlipidemia, unspecified; M81.0 Age-related osteoporosis without current pathological fracture; R59.0 Localized enlarged lymph nodes; F41.9 Anxiety disorder, unspecified; F32.A Depression, unspecified; Z87.442 Personal history of urinary calculi

== ENCOUNTER → 2025-10-14 10:53 | Outpatient (BNVA) | payer MEDICARE, SELFPAY | PROVIDERS: PCP Physician Assistant; Visit Provider Physician Assistant | DX: Z13.31 Encounter for screening for depression (principal) | CPT/HCPCS: 96127 ==

== ENCOUNTER 2025-10-20 08:13 | Day surgery (SDC) | payer MEDICARE, SELFPAY ==
--- OUTSIDE RECORDS SUMMARY | 2025-09-17 06:59 | XMS_ITS | Clinical Summary ---
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 Mammo Location: [facility], [address] [place] [address], [phone], . -------- FINAL REPORT -------- Dictated By: Opal Cox Dictated Date: 02/06/2025 09:11 ET Assigned Physician: Opal Cox Reviewed and Electronically Signed By: Opal Cox Signed Date: 02/06/2025 09:13 ET Workstation ID: [id number] Transcribed By: Self Edit Transcribed Date: 02/06/2025 [...] is recommended in 1 year. Mammo Location: [facility], [address] [place] [address], [address], . -------- FINAL REPORT -------- Dictated By: Oapl Cox Dictated Date: 02/06/2025 09:11 ET Assigned Physician: Opal Cox Reviewed and Electronically Signed By: Opal Cox Signed Date: 02/06/2025 09:13 ET Workstation ID: [id number] Transcribed By: Self Edit Transcribed Date: 02/06/2025 [...] should be classified as having osteopenia. The [facility] Department of Internal Medicine recommends using [...] Joyner should beclassified as having osteopenia. The [facility] Department of Internal Medicine recommendsusing National [...] fracture risk by FRAX. Valery James DO [facility] DXA PROCEDURES Final Result * Colonoscopy (10/01/2018) [facility] Colonoscopy No Interpretation , Abstracted Anatomical Region Laterality Modality Other Historical Provider HEALTH MAINTENANCE Final Result * Hepatitis C Screening (10/09/2013) [facility] Hepatitis C Screening Abstracted [facility] Provider HEALTH MAINTENANCE Final Result from Last 3 Months or Most Recently Relevant to Health Maintenance Insurance [facility]ICARE [facility]
[2025-10-14 12:11] VITALS: BMI 19.8
[2025-10-20 09:25] VITALS: BMI 18.3
[2025-10-20 09:28] VITALS: BP 128/69; PULSE 86; RESP 16; TEMP 36.6; O2SAT 98
--- NOTE | 2025-10-20 10:16 | P.CONAN_ITS ---
Documented by User: Sharron Brady NP 10/14/25 14:04 HPI - Anesthesia Eval Consult details Narrative: 74 yr old female for colonoscopy PMFSH Active Problems Active Problems: All Active Problems Colon cancer screening (Acute) Renal cyst, right (Acute) Anxiety and depression (Acute) Cervical lymphadenopathy (Acute) Skin cancer screening (Acute) Osteoporosis (Acute) HLD (hyperlipidemia) (Acute) Microscopic hematuria (Acute) Hx of renal calculi (Acute) Constipation (Acute) Rectal bleeding (Acute) Past Medical History Medical History (Updated 10/14/25 @ 12:08 by Ashlie Donnelly RN) Renal calculi HLD (hyperlipidemia) Osteoporosis Renal cyst Anxiety Depression Constipation Rectal bleeding Family History Family History Mother HTN (hypertension) Father HTN (hypertension) Thyroid disease Rheumatoid arthritis Sister Asthma Surgical History Surgical History H/O colonoscopy Social History Social History Housing: House Alcohol intake: former Comment: 35 years sober Patient Tobacco Use Status: Former Tobacco user Cigarettes Per Day: 5 Years Smoked: 20 e-Cigarette/Vaping Use: Never Used Second Hand Smoke Exposure: No Use of substances other than those prescribed or required for medical reasons: No Advance Directives: No Advance Directives Information Provided: Yes service: No Current occupational status: retired Cognitive needs: No Hearing needs: No Vision needs: No Meds Allergies Allergy/AdvReac Type Severity Reaction Status Date / Time varenicline (From Chantix) Allergy Severe mood swings Verified 10/20/25 09:42 Home Medications ?Medication ?Instructions ?Recorded ?Confirmed ?Last Taken ?Type aspirin 81 mg tablet,delayed 81 mg PO DAILY 04/08/25 1 12/21/24 10/13/25 History release Exam Height,Weight and Vital Signs: Height 5 ft 3 in Weight 50.802 kg Pertinent Lab Results Pertinent Lab Results: Laboratory Tests 08/17/25 09:07 WBC 4.2 L RBC 4.22 Hgb 12.4 Hct 37.1 Plt Count 262 Sodium 141 Potassium 4.0 BUN 12 Creatinine 0.65 Documented by User: Zabrina Wills DO 10/20/25 10:18 [facility] Past Medical History Medical History (Updated 10/14/25 @ 12:08 by Ashlie Donnelly RN) Renal calculi HLD (hyperlipidemia) Osteoporosis Renal cyst Anxiety Depression Constipation Rectal bleeding Family History Family History Mother HTN (hypertension) Father HTN (hypertension) Thyroid disease Rheumatoid arthritis Sister Asthma Family history of problems with anesthesia: No Surgical History Surgical History H/O colonoscopy History of Problems with Anesthesia: No Social History Social History Housing: House Alcohol intake: former Comment: 35 years sober Patient Tobacco Use Status: Former Tobacco user Cigarettes Per Day: 5 Years Smoked: 20 e-Cigarette/Vaping Use: Never Used Second Hand Smoke Exposure: No Use of substances other than those prescribed or required for medical reasons: No Advance Directives: No Advance Directives Information Provided: Yes service: No Current occupational status: retired Cognitive needs: No Hearing needs: No Vision needs: No Meds Allergies Allergy/AdvReac Type Severity Reaction Status Date / Time varenicline (From Chantix) Allergy Severe mood swings Verified 10/20/25 09:42 Home Medications ?Medication ?Instructions ?Recorded ?Confirmed ?Last Taken ?Type aspirin 81 mg tablet,delayed 81 mg PO DAILY 04/08/25 1 12/21/24 10/13/25 History release Exam Exam Date and Time: 10/20/25 1015 Height,Weight and Vital Signs: Height 5 ft 3 in Weight 50.802 kg Vital Signs Temperature 98 F 10/20/25 09:28 Pulse Rate 86 10/20/25 09:28 Respiratory Rate 16 10/20/25 09:28 Blood Pressure 128/69 10/20/25 09:28 Pulse Oximetry 98 10/20/25 09:28 Oxygen Delivery Method Room Air 10/20/25 09:28 Temperature 98 F 10/20/25 09:28 Pulse Rate 86 10/20/25 09:28 Respiratory Rate 16 10/20/25 09:28 Blood Pressure 128/69 10/20/25 09:28 Pulse Oximetry 98 10/20/25 09:28 Oxygen Delivery Method Room Air 10/20/25 09:28 Airway Mallampati Class: I TM Dist: >3cm Neck ROM: Full Loose/Missing/Broken Teeth: No (patient denies any loose or broken teeth) Heart: S1S2 Lungs: CTAB Assessment and Plan Assessment Anesthesia Assessment: Anesthesia Plan Discussed and Chart Reviewed Final Anesthetic Review Family History of Problems with Anesthesia: No History of Problems with Anesthesia: No NPO: Yes ASA Class: II Final Preanesthetic Review: No Changes in Pt Med Stat, Meds/Allgs Chart Reviewed, Consent Obtained/Reviewed and Anes Risks/Benef Reviewed Patient Risk: Low Procedure Risk: Low Anesthetic Plan Anesthetic Plan: MAC: and Agree w/ Assess. and Plan Disposition: Standard PACU
--- NOTE | 2025-10-20 10:35 | MHC.SHP ---
Pre-Procedural Eval Section A - 24 Hr Update-Section A only Date of Service: 10/20/25 Section B - Complete if H&P > 30 days Chief Complaint: rectal bleeding,screening Relevant Family History (Specify if Yes): No Relevant Social History: None Present Medications: see Short Stay Collaborative assessment Medical History: Significant History (Constipation Colon cancer screening Rectal bleeding, HLP, anxiety, osteoporosis ) History of Previous Operations: Relevant previous surgery/procedure and date(s) ( H/O colonoscopy) Allergies: Allergies Allergy/AdvReac Type Severity Reaction Status Date / Time varenicline (From [email or web address]) Allergy Severe mood swings Verified 10/20/25 09:42 Review of Systems Sugical H&P ROS: Negative: Constitution, Cardiovascular, Respiratory, Neurological, Psychiatric, Hem-Onc, Allergic/Immunologic, Gastrointestinal, Genitourinary, Musculoskeletal, Integumentary, Endocrine and Eyes/Ears/Nose/Throat Exam Surgical H&P Exam: Normal: HEENT, Normal: Heart, Normal: Lungs, Normal: Extremities, Normal: Abdomen, Normal: Skin and Normal: Neurological Plan Diagnosis/Plan: Unchanged I have reviewed the history and physical and performed a pertinent physical examination on my patient. No changes have occurred unless specified. Time Spent With Patient Time: Total time managing care of this patient today ____ minutes.
--- NOTE | 2025-10-20 11:05 | HO.OPN-COLON ---
Colonoscopy Operative Note Operative Note Date of Service: 10/20/25 Narrative: Operative Information Procedure Description: Colonoscopy Indication: rectal bleeding Anesthesia: MAC COLONOSCOPY Instrument: Olympus variable stiffness pediatric scope 190L Colonoscopy Monitoring: Vital signs and clinical assessment, continuous EKG monitoring, Pulse oximetry, Carbon Dioxide monitoring and blood pressure monitoring were done throughout the procedure. Colon withdrawal time was 11 minutes. Procedure: The patient was placed in the left lateral decubitis position and pre-procedure medications were administered. After a digital rectal examination of the ano-rectum, the video colonoscope was inserted into the rectum and advanced through the colon to the cecum/TI. The colonoscope was slowly withdrawn in a retrograde panoramic fashion and the colon mucosa was carefully examined including a retroflexed view of the rectum. Findings and interventions are described below. Procedure Difficulty: easy Findings: Terminal Ileum-normal Cecum:normal Ascending Colon: normal Transverse Colon -normal Descending Colon:normal Sigmoid Colon: moderate diverticulosis Rectum: Retroflexion with small internal hemorrhoids seen, grade I Anorectum - normal Intervention: none Colon preparation: [place] Bowel Preparation Scale Right colon; 2 Transverse colon: 2 Left colon; 2 (0 = Unprepared colon segment with mucosa not seen due to solid stool that cannot be cleared. 1 = Portion of mucosa of the colon segment seen, but other areas of the colon segment not well seen due to staining, residual stool and/or opaque liquid. 2 = Minor amount of residual staining, small fragments of stool and/or opaque liquid, but mucosa of colon segment seen well. 3 = Entire mucosa of colon segment seen well with no residual staining, small fragments of stool or opaque liquid) Impression and Post Procedure Diagnosis: diverticulosis internal hemorrhoids Plan: High fiber diet leaflet Avoid straining at stool, epsom salts and sitz bath, anusol supps or cream Repeat Colonoscopy in 10 years if health allows and patient wishes or earlier if clinically indicated Above findings were reviewed with the patient and relevant handouts were provided if indicated.
[2025-10-20 11:08] VITALS: BP 122/55; PULSE 85; RESP 14; TEMP 36.4; O2SAT 97
[2025-10-20 11:23] VITALS: BP 131/62; PULSE 83; RESP 14; TEMP 36.4; O2SAT 97
== END 2025-10-20 12:01 | disposition home or self-care (01) ==
PROVIDERS: PCP Physician Assistant; Visit Provider Internal Medicine Gastroenterology
PROC: 0DJD8ZZ Inspection of Lower Intestinal Tract, Via Natural or Artificial Opening Endoscopic (ICD-10-PCS; CPT 45378; principal; 2025-10-20 10:30)
DX: K62.5 Hemorrhage of anus and rectum (principal); K57.30 Diverticulosis of large intestine without perforation or abscess without bleeding; K64.0 First degree hemorrhoids; K59.00 Constipation, unspecified
CPT/HCPCS: 45378; J2003; J2704

== ENCOUNTER → 2025-10-20 08:13 | Outpatient (BNV) | payer MEDICARE, SELFPAY | PROVIDERS: PCP Physician Assistant; Visit Provider Internal Medicine Gastroenterology | DX: K62.5 Hemorrhage of anus and rectum (principal); K57.30 Diverticulosis of large intestine without perforation or abscess without bleeding; K64.0 First degree hemorrhoids | CPT/HCPCS: 45378 ==

== ENCOUNTER 2025-11-03 12:55 | Outpatient (REF) | payer MEDICARE, SELFPAY | END 2025-11-03 12:56 | disposition home or self-care (01) | LOC: HO.LAB 12:55 | PROVIDERS: PCP Physician Assistant; Visit Provider Nurse Practitioner Family | DX: R31.29 Other microscopic hematuria (principal); N28.1 Cyst of kidney, acquired; Z87.442 Personal history of urinary calculi | CPT/HCPCS: 81003; 88112; 99212 ==

== ENCOUNTER 2025-11-03 12:55 | Outpatient (AMB) | payer MEDICARE, SELFPAY ==
--- NOTE | 2025-11-03 13:00 | MHC.OFFVIS ---
Intake Visit Reasons: 3m/Litholink/UA Intake Note: Patient is present for 3M/LITHOLINK/UA Urology Medication:NONE Antibiotic Allergy:NONE Blood Thinner:ASPIRIN Gallery Or [employer] Guide Required: No Allergies varenicline (From Chantix) Allergy (Severe, Verified 11/03/25 14:06) mood swings Medication List - Last Reconciled 11/03/25 by FREDY TaylorP- alendronate 70 mg PO QWEEK 90 days aspirin 81 mg PO DAILY atorvastatin 20 mg PO DAILY venlafaxine ER 150 mg PO DAILY HPI Comments Details: Yvonne is a pleasant 75 year old female patient of Dr. Plaza was accompanied by her significant other at today's office visit. She has a past medical history of IBS, hyperlipidemia, anxiety, depression, osteoporosis, and nephrolithiasis. She presents to the office today as a new patient for nephrolithiasis and renal cyst. Recent 24 hour Litholink results reviewed with the patient today. 09/12 we discussed adequate urine volume of 2.6 L. we discussed hypocitraturia and elevated pH. We did discussed initiation of potassium citrate 10 mEq b.i.d. however she would like to continue with lifestyle modifications and surveillance monitoring. In office urinalysis results reviewed with the patient today. Previous imaging renal ultrasound 05/13 noted bilateral kidneys with normal parenchymal echotexture and thickness. Right kidney with 5 mm cyst and 2 mm nonobstructing stone. Left kidney with multiple 4 mm nonobstructing calculi. There is no hydronephrosis bilaterally. We did discuss at length potential causes of nephrolithiasis, renal cysts and microscopic hematuria. She currently denies any bothersome urinary issues. She reports she is drinking at least 60 oz of water a day and adds lemon juice to her water daily. In office urinalysis results reviewed with the patient today. Microscopic hematuria noted. Patient does report a longstanding history of microscopic hematuria. She currently denies any bothersome urinary issues or concerns. All questions were answered. She denies any previous history of nicotine dependence and or workplace chemical exposure. She denies urinary urgency, urinary frequency, incontinence, nocturia, gross/visible hematuria, dysuria, foul smelling urine, changes to urinary stream, flank pain, fever, and or chills. She is happy with her current voiding parameters. She otherwise offers no other issues or concerns at this time. [facility] Medical History Renal calculi HLD (hyperlipidemia) Osteoporosis Renal cyst Anxiety Depression Constipation Rectal bleeding Surgical History H/O colonoscopy Family History Mother HTN (hypertension) Father HTN (hypertension) Thyroid disease Rheumatoid arthritis Sister Asthma Social History Housing: House Alcohol intake: former Comment: 35 years sober Patient Tobacco Use Status: Former Tobacco user Cigarettes Per Day: 5 Years Smoked: 20 e-Cigarette/Vaping Use: Never Used Second Hand Smoke Exposure: No service: No Current occupational status: retired Cognitive needs: No Hearing needs: No Vision needs: No Review of Systems Const All systems reviewed & are unremarkable except as noted in HPI and below Physical Exam Const General: cooperative, healthy appearing, comfortable, no acute distress, well developed, alert and awake Nutritional Appearance: thin Orientation/consciousness: patient oriented x3 Limitations: no limitations HEENT Head: Yes normal to inspection, Yes normocephalic and Yes atraumatic Ears: hearing grossly normal bilaterally Eyes General: appearance normal, both eyes and all related structures Neck Neck: Yes normal visual inspection and Yes trachea midline Chest Chest palpation & inspection: normal inspection of the chest Resp Effort & Inspection: normal respiratory effort and able to speak in complete sentences Cardio Rate: regular rate GI Inspection: Yes normal to inspection General: Yes no CVA tenderness Back/Spine/Pelvis Back: no CVA tenderness Skin General skin exam: no rashes or lesions noted Neuro General: patient oriented x3 Extrem General: Yes normal to inspection Psych Appearance: grossly normal and well kempt Mental Status: mental status grossly normal Speech and movement: Normal speech and movement present and Clear speech present Affect: normal affect Attitude: cooperative Thought process: Normal thought process present Thought content: Normal thought content present Insight: Fair insight present (Psych) Judgement: Fair judgement present (Psych) Results AMB Urinalysis, Automated UA Leukoctes 0 Louisa/uL Last Edit by LUIS M Hernandez on 11/03/25 13:28 UA Nitrite Negative Last Edit by LUIS M Hernandez on 11/03/25 13:28 UA Urobilinogen 0.2 mg/dL Last Edit by LUIS M Hernandez on 11/03/25 13:28 UA Protein 0 mg/dL Last Edit by LUIS M Hernandez on 11/03/25 13:28 UA pH 6.0 Last Edit by LUIS M Hernandez on 11/03/25 13:28 UA Blood 25 Kirk/uL Last Edit by LUIS M Hernandez on 11/03/25 13:28 UA Specific [place] 1.010 Last Edit by Rylan Zamora [facility] on 11/03/25 13:28 UA Ketone Negative Last Edit by LUIS M Hernandez on 11/03/25 13:28 UA Bilirubin 0 mg/dL Last Edit by LUIS M Hernandez on 11/03/25 13:28 UA Glucose 0 mg/dL Last Edit by LUIS M Hernandez on 11/03/25 13:28 Results Reviewed Results Reviewed: Laboratory Last Values Urine pH (Auto) 6.0 11/03/25 13:27 Specific [place] (Auto) 1.010 11/03/25 13:27 Urine Protein (Auto) 0 mg/dL 11/03/25 13:27 Glucose (UA)(Auto) 0 mg/dL 11/03/25 13:27 Urine Ketones (Auto) Negative 11/03/25 13:27 Urine Blood (Auto) 25 Kirk/uL 11/03/25 13:27 Urine Nitrite (Auto) Negative 11/03/25 13:27 Urine Bilirubin (Auto) 0 mg/dL 11/03/25 13:27 Urine Urobilinogen (Auto) 0.2 mg/dL 11/03/25 13:27 Leukocyte Esterase (Auto) 0 Louisa/uL 11/03/25 13:27 Assessment & Plan Assessment & Plan (1) Microscopic hematuria: Code(s): R31.29 - Other microscopic hematuria Category: Medical (2) Renal cyst, right: Code(s): N28.1 - Cyst of kidney, acquired Category: Medical (3) Hx of renal calculi: Code(s): Z87.442 - Personal history of urinary calculi Category: Medical Plan In office urinalysis results reviewed with the patient today; as noted above. PVR 0 mL We discussed nephrolithiasis, microscopic hematuria, and renal cysts; we discussed further treatment options and risks and benefits of these treatment options. All questions were answered. Recent Litholink results reviewed with the patient today We did discuss initiation of potassium citrate Continue adding lemon juice to water daily. We discussed the importance of adequate hydration relation to nephrolithiasis as well as overall health and well-being. She currently denies any bothersome urinary issues. She reports be happy with current voiding parameters. Follow-up in 6 months with Litholink to be completed prior; or sooner with any issues, concerns, and or questions. Orders: Orders AMB Urinalysis Automated Today Z13.9 - Encounter for screening, unspecified URORISK Today N28.1 - Cyst of kidney, acquired, R31.29 - Other microscopic hematuria, Z87.442 - Personal history of urinary calculi Urine Cytology Today R31.29 - Other microscopic hematuria US renal BI 6 Months N20.0 - Calculus of kidney Patient Instructions: The patient had an opportunity to ask questions regarding the treatment plan. All questions were answered. Physical exam, labs, and imaging were discussed and reviewed in detail. As well as risks, benefits, and discussion of treatment choices. No major barriers to understanding were identified. The patient expressed understanding and agreement with the above treatment plan. The patient was made aware they should contact our office by phone for worsening of their current condition, the appearance of new symptoms, or with any questions or concerns. Compliance is encouraged with any medications and follow up testing that is ordered. It is a privilege to be allowed the opportunity to participate in? your urological care.? Again, if you have any questions or concerns If you have any questions or concerns please do not hesitate to contact me. The office is [phone]. This note is constructed using voice recognition software. While every effort has been made to ensure accuracy clinical quality assurance specialist errors may have been included. Yours sincerely, MUSA Taylor Coding Level of Care Code Est Pt Level 3 (00023) Add On Problem Visit Only Diagnoses Microscopic hematuria R31.29 Renal cyst, right N28.1 Hx of renal calculi Z87.442
--- OUTSIDE RECORDS SUMMARY | 2025-11-03 16:51 | XMS_ITS | Clinical Summary ---
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 [...] Vasospastic angina (CMS/HCC V24) 02/03/2009 DX:Vasospastic angina ([facility]); COMMENT: Normal cath with judy. [...] is recommended in 1 year. Mammo Location: [facility], [address] [place] [address], [id number], . -------- FINAL REPORT -------- Dictated By: Opal Cox Dictated Date: 02/06/2025 09:11 ET Assigned Physician: Opal Cox Reviewed and Electronically Signed By: Opal Cox Signed Date: 02/06/2025 09:13 ET Workstation ID: [id number] Transcribed By: Self Edit Transcribed Date: 02/06/2025 [...] is recommended in 1 year. Mammo Location: [facility], [address] [place] [address], [id number], . -------- FINAL REPORT -------- Dictated By: Opal Cox Dictated Date: 02/06/2025 09:11 ET Assigned Physician: Opal Cox Reviewed and Electronically Signed By: Opal Cox Signed Date: 02/06/2025 09:13 ET Workstation ID: [id number] Transcribed By: Self Edit Transcribed Date: 02/06/2025 [...] should be classified as having osteopenia. The [facility] Department of Internal Medicine recommends using [...] Joyner should beclassified as having osteopenia. The [facility] Department of Internal Medicine recommendsusing National [...] DXA PROCEDURES Final Result * Colonoscopy (10/01/2018) [facility] Colonoscopy No Interpretation , Abstracted Anatomical Region Laterality Modality Other [facility] Provider HEALTH MAINTENANCE Final Result * Hepatitis C Screening (10/09/2013) [facility] Hepatitis C Screening Abstracted [facility] Provider HEALTH MAINTENANCE Final Result from Last 3 Months or Most Recently Relevant to Health Maintenance Insurance MEDICARE [facility]
== END 2025-11-03 14:03 | disposition home or self-care (01) ==
LOC: HO.HUSH 12:56
PROVIDERS: PCP Physician Assistant; Visit Provider Nurse Practitioner Family
DX: R31.29 Other microscopic hematuria (principal); N28.1 Cyst of kidney, acquired; Z87.442 Personal history of urinary calculi; Z13.9 Encounter for screening, unspecified
CPT/HCPCS: 99213; G2211